=== PATIENT | male | born 1960 | race Caucasian/White ===

== ENCOUNTER 2016-04-24 20:02 | Emergency (ER) | payer BC ==
[~2016-04-24] VITALS: Ht 172.7 cm; Wt 103.4 kg
[~2016-04-24 20:02] MED LIST: AMLO-110 PO; BNT20 PO; EZET10TA47 PO; HYDR-4079 PO; HYZ/50125 PO; MULT-506 PO; OXYC-57 PO; PRT/20 PO; ZOLP5TAB PO
[2016-04-24 20:05] VITALS: TEMP 36.9; Ht 172.7 cm; Wt 103.4 kg
[2016-04-24] MEDS ORDERED: ONDANSETRON INJ 2 MG/ML 2 ML VIAL IV STA (20:37)
[2016-04-24] MEDS ORDERED: PROMETHAZINE HCL INJ 25 MG/ML 1 ML VIAL IV STA (20:37)
[2016-04-24] MEDS ORDERED: SODIUM CHLORIDE 0.9% 1000ML 1,000 ML IV STA ×2 (20:37)
[2016-04-24] MEDS ORDERED: KETOROLAC TROMETHAMINE 30 MG/ML VIAL IV STA (20:37)
[2016-04-24] MEDS ORDERED: HYDROmorphone INJ 2 MG/ML SYR/VIAL IV PRN (20:45)
--- NOTE | 2016-04-24 20:49 | EMERGENCY ROOM VISIT NOTE ---
History Report prepared by Chelsi: Clinton Anguiano Under the Supervision of: Dr. Ralph Wasserman M.D. First contact with patient: 20:35 Chief Complaint: ABDOMINAL PAIN Stated Complaint: PAIN IN ABDOMEN, BACK AND NECK Nursing Triage Summary: hx. pancreatitis. pt with N/V/D. abdominal pain and bloating. unable to keep anything down. water causes extreme pain. denies fever, chills, CP, SOB History of Present Illness The patient is a 55 year old male who presents to the Emergency Room with complaints of worsening right sided abdominal pain beginning two days prior to arrival. He currently rates his discomfort as an 8/10 in severity. The patient associates abdominal pain that radiates to his right flank, nausea, vomiting, and diarrhea with today's symptoms. He states he had a similar episode a few months ago, in which, he was seen in the ED. The patient notes the pain has been intermittent since that time. He states he has a history of pancreatitis. He states had an ultrasound of his pancreas performed that revealed scarring and inflammation. The patient notes he took pain medication today without relief. He denies a history of kidney stones. The patient denies a rash, recent injury, and testicular pain. Source of History: patient Onset: 2 days [employer] Position: abdomen (right sided) Symptom Intensity: 8/10 Timing: worsening Associated Symptoms: + back pain (abdominal pain that radiates to right flank), + diarrhea, + nausea, + vomiting, No rash Review of Systems See HPI for pertinent positives & negatives. A total of 10 systems reviewed and were otherwise negative. Past Medical & Surgical Medical Problems: (1) Chronic pancreatitis (2) Dyslipidemia (3) Hypertension (4) Pancreatitis Surgical Problems: (1) H/O colonoscopy (2) H/O esophagogastroduodenoscopy (3) H/O hernia repair (4) H/O inguinal hernia repair (5) H/O laparoscopy (6) History of appendectomy (7) History of dental surgery (8) Hx of tonsillectomy (9) S/P appendectomy (10) S/P tonsillectomy and adenoidectomy Family History FH: cancer GRANDMOTHER (lung CA) Gallbladder disease Hypertension FATHER Social History Smoking Status: Never Smoker Alcohol Use: none Drug Use: none Marital Status: Housing Status: lives with family Occupation Status: employed Current/Historical Medications Scheduled Amlodipine (Norvasc), 5 MG PO HS Gemfibrozil (Gemfibrozil), 600 MG PO BID Losartan Potassium (Cozaar), 100 MG PO DAILY Ondasetron Odt (Zofran Odt), 4-8 MG SL Q6H Scheduled PRN Dicyclomine Hcl (Dicyclomine Hcl), 20 MG PO BID PRN for Abdominal Pain Oxycodone HCl (Oxycodone HCl), 5-10 MG PO Q4-6HRS PRN for Pain Pantoprazole Sodium (Protonix), 20 MG PO DAILY PRN for Acid Reflux Zolpidem Tartrate (Zolpidem Tartrate), 5 MG PO HS PRN for Sleep Allergies Coded Allergies: Lisinopril (Verified Adverse Reaction, Intermediate, Cough, 04/24/16) Physical Exam Vital Signs Date Time Temp Pulse Resp B/P Pulse Ox O2 Delivery O2 Flow Rate FiO2 04/24/16 23:19 90 20 166/96 96 Room Air 04/24/16 22:41 90 20 162/92 98 Room Air 04/24/16 21:27 83 20 171/104 98 Room Air 04/24/16 20:05 36.9 113 20 199/116 99 Room Air Physical Exam GENERAL: Patient is in no acute distress. HEENT: No acute trauma, normocephalic atraumatic, mucous membranes moist, no nasal congestion, no scleral icterus. NECK: No stridor, no adenopathy, no meningismus, trachea is midline. LUNGS: Clear to auscultation bilaterally, no wheeze, no rhonchi, breath sounds equal. HEART: Mildly tachycardic with a regular rhythm, and a 2/6 systolic murmur. ABDOMEN: Tenderness in the right upper quadrant and epigastrium. Soft, bowel sounds positive, no hernias, no peritonitis. CHEST: Tenderness to the right anterior and lateral lower chest wall. BACK: Tender over the right lumbar musculature and flank with palpation, no rash. EXTREMITIES: No cyanosis or edema, full range of motion of all the joints without pain or difficulty, no signs for acute trauma. NEUROLOGIC: Oriented x 3, no acute motor or sensory deficits, no focal weakness. SKIN: No rash, no jaundice, no diaphoresis. Medical Decision & Procedures ER Provider Diagnostic Interpretation: X-ray results as stated below per interpretation by me and the radiologist: CHEST AND ABDOMEN 2 VIEWS HISTORY: Right-sided abdominal pain. COMPARISON: Abdomen and pelvis CT 02/13/2016. Chest x-ray 05/31/2014. FINDINGS: The lungs are clear. The heart remains borderline enlarged. No pleural effusions. No pneumothorax. Prior cholecystectomy. No pneumoperitoneum. No pneumatosis. No dilated loops of bowel to suggest an obstruction. No renal or ureteral calculi. Round calcifications in the deep pelvis consistent with phleboliths. Small to moderate amount of well-formed stool seen throughout the colon. IMPRESSION: No acute cardiopulmonary process. No evidence for bowel obstruction. Electronically signed by: Kam Baeza M.D. 04/24/2016 10:28 PM Dictated Date/Time: 04/24/2016 10:26 PM Laboratory Results 04/24/16 20:20 Red Blood Count 4.84, Mean Corpuscular Volume 89.5, Mean Corpuscular Hemoglobin 32.2, Mean Corpuscular Hemoglobin Concent 36.0, Mean Platelet Volume 10.3, Neutrophils (%) (Auto) 42.0, Lymphocytes (%) (Auto) 45.1, Monocytes (%) (Auto) 10.0, Eosinophils (%) (Auto) 2.4, Basophils (%) (Auto) 0.4, Neutrophils # (Auto ) 2.79, Lymphocytes # (Auto) 3.01, Monocytes # (Auto) 0.67, Eosinophils # (Auto ) 0.16, Basophils # (Auto) 0.03 04/24/16 20:20 Test 04/24/16 20:20 White Blood Count 6.67 K/uL (4.8-10.8) Red Blood Count 4.84 M/uL (4.7-6.1) Hemoglobin 15.6 g/dL (14.0-18.0) Hematocrit 43.3 % (42-52) Mean Corpuscular Volume 89.5 fL (80-100) Mean Corpuscular Hemoglobin 32.2 pg (25-34) Mean Corpuscular Hemoglobin Concent 36.0 g/dl (32-36) Platelet Count 362 K/uL (130-400) Mean Platelet Volume 10.3 fL (7.4-10.4) Neutrophils (%) (Auto) 42.0 % Lymphocytes (%) (Auto) 45.1 % Monocytes (%) (Auto) 10.0 % Eosinophils (%) (Auto) 2.4 % Basophils (%) (Auto) 0.4 % Neutrophils # (Auto) 2.79 K/uL (1.4-6.5) Lymphocytes # (Auto) 3.01 K/uL (1.2-3.4) Monocytes # (Auto) 0.67 K/uL (0.11-0.59) Eosinophils # (Auto) 0.16 K/uL (0-0.5) Basophils # (Auto) 0.03 K/uL (0-0.2) RDW Standard Deviation 40.7 fL (36.4-46.3) RDW Coefficient of Variation 12.4 % (11.5-14.5) Immature Granulocyte % (Auto) 0.1 % Immature Granulocyte # (Auto) 0.01 K/uL (0.00-0.02) Urine Color YELLOW Urine Appearance CLEAR (CLEAR) Urine pH 7.5 (4.5-7.5) Urine Specific Gilman 1.019 (1.000-1.030) Urine Protein NEG (NEG) Urine Glucose (UA) NEG (NEG) Urine Ketones NEG (NEG) Urine Occult Blood NEG (NEG) Urine Nitrite NEG (NEG) Urine Bilirubin NEG (NEG) Urine Urobilinogen NEG (NEG) Urine Leukocyte Esterase NEG (NEG) Anion Gap 14.0 mmol/L (3-11) Est Creatinine Clear Calc Drug Dose 105.8 ml/min Estimated GFR () 107.5 Estimated GFR (Non- 92.7 BUN/Creatinine Ratio 17.4 (10-20) Calcium Level 9.3 mg/dl (8.5-10.1) Total Bilirubin 0.5 mg/dl (0.2-1) Aspartate Amino Transf (AST/SGOT) 144 U/L (15-37) Alanine Aminotransferase (ALT/SGPT) 238 U/L (12-78) Alkaline Phosphatase 113 U/L (45-117) Total Protein 8.2 gm/dl (6.4-8.2) Albumin 4.4 gm/dl (3.4-5.0) Globulin 3.8 gm/dl (2.5-4.0) Albumin/Globulin Ratio 1.2 (0.9-2) Lipase 351 U/L (73-393) Chemistry Specimen Hemolysis Laboratory results reviewed by me. Medications Administered Medications (Trade) Dose Ordered Sig/Negrito Route Start Time Stop Time Status Last Admin Dose Admin Sodium Chloride (Nss 1000ml) 1,000 ml @ 999 mls/hr Q1H1M STAT IV 04/24/16 20:37 04/24/16 21:37 DC 04/24/16 21:09 999 MLS/HR Ketorolac Tromethamine (Toradol Inj) 30 mg NOW STAT IV 04/24/16 20:37 04/24/16 20:42 DC 04/24/16 21:09 30 MG Hydromorphone HCl (Dilaudid Inj) 1 mg Q30M PRN IV 04/24/16 20:45 04/25/16 00:56 DC 04/24/16 21:09 1 MG Ondansetron HCl 4 mg 4 mg NOW STAT IV 04/24/16 20:37 04/24/16 20:42 DC 04/24/16 21:08 4 MG Promethazine HCl/ Sodium Chloride (Phenergan Inj/ Nss 50ml) 50.5 ml @ 202 mls/hr NOW STAT IV 04/24/16 21:08 04/24/16 21:22 DC 04/24/16 21:27 202 MLS/HR Hydromorphone HCl (Dilaudid Inj) 1 mg STK-MED ONCE .ROUTE 04/24/16 21:47 04/24/16 21:49 DC 04/24/16 21:51 1 MG Hydromorphone HCl (Dilaudid Inj) 1 mg STK-MED ONCE .ROUTE 04/24/16 23:08 04/24/16 23:09 DC 04/24/16 23:11 1 MG Oxycodone HCl (Roxicodone Immediate Rel 5MG Home Pack) 1 homepack UD ONCE PO 04/24/16 23:15 04/24/16 23:16 DC 04/24/16 23:45 1 HOMEPACK Ondansetron HCl (ZOFRAN ODT 4MG Home Pack) 1 homepack UD ONCE PO 04/24/16 23:15 04/24/16 23:16 DC 04/24/16 23:45 1 HOMEPACK ECG Indication: abdominal pain Rate (beats per minute): 73 Rhythm: normal sinus Findings: no acute ischemic change, no ectopy ED Course 2035: The patient was evaluated in room B2. A complete history and physical exam was performed. 2036: Ordered Zofran Inj 4 mg IV, Toradol Inj 30 mg IV, Sodium Chloride 1,000 ml @ 999 mls/hr IV, Phenergan Inj 12.5 mg IV. 2044: Ordered Dilaudid Inj 1 mg IV. 2107: Ordered Promethazine HCl 12.5 mg/Sodium Chloride 50.5 ml @ 202 mls/hr IV. 2256: Reevaluated the patient. Discussed results and discharge instructions: He verbalized understanding and agreement. The patient is ready for discharge. 2314: Ordered Ondansetron HCl 1 homepack PO, Oxycodone HCl 1 homepack PO. Medical Decision The differential diagnoses include but are not limited to: dehydration, acute pancreatitis, biliary colic, musculoskeletal pain, pneumonia, bowel obstruction , UTI, renal colic. There is no leukocytosis or concerning anemia. No significant electrolyte abnormality, kidney failure. The patient does have some mild elevation to a few of his LFTs, bilirubin is not elevated. There is no pancreatitis by our testing. Urinalysis does not show infection. Obstruction series shows no free air, pneumonia or bowel obstruction. The patient was not febrile or toxic. He has had similar presentations in the past. He received IV saline, IV Toradol, IV Zofran, IV Phenergan and IV Dilaudid. He is more comfortable. I do think the patient can be discharged. He has recently received a prescription for oxycodone based on the drug monitoring program. I will not write any new pain medication prescriptions. A prescription for Zofran was given. The patient should slowly advance his diet and follow with his doctor's office, he can return if worsening. He appears to be having a flare of his chronic abdominal issues. [place] Drug Monitoring Program Search Results: patient reviewed within database, see additional documentation Drug Monitoring Findings: The patient was prescribed 180 Percocet on April 09, 2016. Impression Primary Impression: Right flank pain Scribe Attestation The scribe's documentation has been prepared under my direction and personally reviewed by me in its entirety. I confirm that the note above accurately reflects all work, treatment, procedures, and medical decision making performed by me. Departure Information Dispostion Home / Self-Care Prescriptions Ondasetron Odt (ZOFRAN ODT) 4 Mg Tab 4-8 MG SL Q6H for Nausea, #6 TAB Prov: Ralph Wasserman M.D. 04/24/16 Referrals Yas Lopez M.D. (PCP) Forms Call Back Authorization, HOME CARE DOCUMENTATION FORM, IMPORTANT VISIT INFORMATION, My [facility], Work Instructions Patient Instructions A Signature Page Additional Instructions oxy ir 1-2 tab every 4 hours for severe pain zofran 1-2 tab every 6 hours for nausea fluids rest bland diet---crackers, soup, gatorade, toast follow with dina md this week return for fever or if worsening lab testing today was all ok
[2016-04-24 20:51] LABS: URINE APPEARANCE CLEAR (CLEAR); URINE BILIRUBIN NEG (NEG); URINE COLOR YELLOW; URINE NITRITE NEG (NEG); URINE PH 7.5 (4.5-7.5); URINE SPECIFIC GRAVITY 1.019 (1.000-1.030); UROBILINOGEN NEG (NEG); ZZUR CULT IF INDIC CLEAN CATCH NO
[2016-04-24 21:03] LABS: MANUAL MICROSCOPIC REQUIRED? NO; REVIEW REQ? NO
[2016-04-24] MEDS ORDERED: PROMETHAZINE HCL INJ 12.5 MG in SODIUM CHLORIDE 0.9% 50ML 50 ML IV STA (21:08)
[2016-04-24] MEDS ORDERED: PANT20TA PO (21:14)
[2016-04-24] MEDS ORDERED: OXYC-609 PO (21:14)
[2016-04-24] MEDS ORDERED: LPD600 PO (21:14)
[2016-04-24] MEDS ORDERED: ZOLP5TAB6 PO (21:14)
[2016-04-24] MEDS ORDERED: DICY20TA10 PO (21:14)
[2016-04-24] MEDS ORDERED: LOSA100T65 PO (21:14)
[2016-04-24 21:18] LABS: BASO % 0.4 %; BASO ABS # 0.03 K/uL (0-0.2); COMPLETE YES; EOS % 2.4 %; HEMATOCRIT 43.3 % (42-52); IG% 0.1 %; LYMPH % 45.1 %; LYMPH ABS # 3.01 K/uL (1.2-3.4); MEAN CELL VOLUME 89.5 fL (80-100); MEAN CORPUSCULAR HEMOGLOBIN 32.2 pg (25-34); MEAN PLATELET VOLUME 10.3 fL (7.4-10.4); PLATELET COUNT 362 K/uL (130-400); RED BLOOD COUNT 4.84 M/uL (4.7-6.1); WHITE BLOOD COUNT 6.67 K/uL (4.8-10.8)
[2016-04-24 21:32] LABS: ALB/GLOB RATIO 1.2 (0.9-2); BUN/CREATININE RATIO 17.4 (10-20); CALCIUM 9.3 mg/dl (8.5-10.1); CREATININE 0.93 mg/dl (0.60-1.40); POTASSIUM 3.6 mmol/L (3.5-5.1)
[2016-04-24] MEDS ORDERED: HYDROmorphone INJ 1 MG/ML SYR ONE ×2 (21:47→23:08)
--- NOTE | 2016-04-24 22:30 | DIAGNOSTIC IMAGING REPORT ---
CHEST AND ABDOMEN 2 VIEWS HISTORY: Right-sided abdominal pain. COMPARISON: Abdomen and pelvis CT 02/13/2016. Chest x-ray 05/31/2014. FINDINGS: The lungs are clear. The heart remains borderline enlarged. No pleural effusions. No pneumothorax. Prior cholecystectomy. No pneumoperitoneum. No pneumatosis. No dilated loops of bowel to suggest an obstruction. No renal or ureteral calculi. Round calcifications in the deep pelvis consistent with phleboliths. Small to moderate amount of well-formed stool seen throughout the colon. IMPRESSION: No acute cardiopulmonary process. No evidence for bowel obstruction. Electronically signed by: Kam Baeza M.D. 04/24/2016 10:28 PM Dictated Date/Time: 04/24/2016 10:26 PM
[2016-04-24] MEDS ORDERED: ONDANSETRON HOME PACK 4MG OD TAB PO ONE (23:15)
[2016-04-24] MEDS ORDERED: OXYCODONE IR HOME PACK PO ONE (23:15)
[2016-04-24] MEDS ORDERED: ONDA4TAB10 SL (23:17)
[2016-04-24 23:19] VITALS: BP 166/96; PULSE 90; O2SAT 96
== END 2016-04-24 23:48 | disposition home or self-care (01) ==
LOC: C.EDB 20:03
DX: R10.30 Lower abdominal pain, unspecified (principal); E78.5 Hyperlipidemia, unspecified; I10 Essential (primary) hypertension; Z82.49 Family history of ischemic heart disease and other diseases of the circulatory system; Z79.899 Other long term (current) drug therapy

== ENCOUNTER 2017-08-04 12:51 | Inpatient (IN) | payer BC ==
[~2017-08-04] VITALS: Ht 177.8 cm; Wt 101.1 kg
[~2017-08-04 12:51] MED LIST changes: -BNT20 PO; +CRG625 PO; +DICY20TA10 PO; -EZET10TA47 PO; -HYDR-4079 PO; +HYG/25 PO; -HYZ/50125 PO; +LOSA100T65 PO; +LPD600 PO; -MULT-506 PO; +OXYC-164 PO; -OXYC-57 PO; +PANCCAP2 PO; +PANT20TA2 PO; -PRT/20 PO; -ZOLP5TAB PO
[2017-08-04] MEDS ORDERED: ONDANSETRON INJ 2 MG/ML 2 ML VIAL IV STA (13:04)
[2017-08-04] MEDS ORDERED: SODIUM CHLORIDE 0.9% 1000ML 1,000 ML IV STA (13:04)
[2017-08-04] MEDS ORDERED: OPTIRAY 320 IV PRN (13:15)
[2017-08-04] MEDS: MoRPHine SULFATE 10 MG/ML CARP/VIAL IV PRN ×2 (13:29→14:13)
[2017-08-04 13:51] LABS: ALBUMIN 4.7 gm/dl (3.4-5.0); CREATININE 1.22 mg/dl (0.60-1.40)
[2017-08-04 13:56] LABS: TOTAL PROTEIN 9.3 gm/dl (6.4-8.2)
--- NOTE | 2017-08-04 14:03 | DIAGNOSTIC IMAGING REPORT ---
CHEST ONE VIEW PORTABLE CLINICAL HISTORY: Pain, radiating to the abdomen. COMPARISON STUDY: 04/24/2016 FINDINGS: The cardiac and mediastinal contours are normal. There is no evidence of focal pulmonary consolidation. There is no evidence of failure. No pleural effusions are visualized.[ There is no free intraperitoneal air. IMPRESSION: No active disease in the chest. Electronically signed by: Roberto Yeh M.D. 08/04/2017 2:02 PM Dictated Date/Time: 08/04/2017 2:01 PM
[2017-08-04] MEDS ORDERED: LABETALOL HCL IV 5 MG/ML 20ML IV STA (14:07)
[2017-08-04 14:12] LABS: BASO % 0.5 %; BASO ABS # 0.04 K/uL (0-0.2); EOS % 2.3 %; HEMATOCRIT 42.5 % (42-52); HEMOGLOBIN 15.5 g/dL (14.0-18.0); IG# 0.02 K/uL (0.00-0.02); LYMPH % 27.8 %; LYMPH ABS # 2.46 K/uL (1.2-3.4); MEAN CELL VOLUME 88.7 fL (80-100); MEAN CORPUSCULAR HEMOGLOBIN 32.4 pg (25-34); MEAN CORPUSCULAR HGB CONC 36.5 g/dl (32-36); MEAN PLATELET VOLUME 9.6 fL (7.4-10.4); MONO % 7.8 %; MONO ABS # 0.69 K/uL (0.11-0.59); NEUT % 61.4 %; NEUT ABS # 5.44 K/uL (1.4-6.5); PLATELET COUNT 317 K/uL (130-400); RED CELL DISTRIBUTION WIDTH SD 38.6 fL (36.4-46.3); WHITE BLOOD COUNT 8.85 K/uL (4.8-10.8)
[2017-08-04 14:26] LABS: POTASSIUM 3.8 mmol/L (3.5-5.1)
--- NOTE | 2017-08-04 15:02 | DIAGNOSTIC IMAGING REPORT ---
CT SCAN OF THE ABDOMEN AND PELVIS WITH IV CONTRAST CLINICAL HISTORY: Generalized abdominal pain. COMPARISON STUDY: Abdominal CT dated 02/19/2017 04/02/2013. TECHNIQUE: Following the IV administration of 93 cc of Optiray 320, CT scan of the abdomen and pelvis is performed from the lung bases to the proximal femora. Images are reviewed in the axial, sagittal, and coronal planes. IV contrast was administered without complication. A dose lowering technique was utilized adhering to the principles of ALARA. CT DOSE: 846.01 mGy.cm FINDINGS: Lung bases: The heart is top normal in size and without pericardial effusion. A 4 mm pleural-based nodule at the left lung base is seen on image #8. This is unchanged dating back to 2012 and of doubtful significance. The lung bases are otherwise clear noting bibasilar atelectasis. There is a tiny hiatal hernia. Liver: The contrast-enhanced liver is enlarged, measuring 19.1 cm in length. The liver demonstrates diminished attenuation consistent with mild hepatic steatosis. There is mild intrahepatic biliary ductal dilatation. The hepatic veins and portal veins are patent. Gallbladder: Surgically absent noting clips in the gallbladder fossa. Spleen: Normal in size and attenuation. Pancreas: Unremarkable. Adrenal glands: Unremarkable. Kidneys: The contrast enhanced kidneys are normal in size and without hydronephrosis. The kidneys enhance symmetrically. Abdominal vasculature: The abdominal aorta is normal in course and caliber noting mild atherosclerotic calcification. Bowel: There is mild colonic diverticulosis without CT evidence of acute diverticulitis. No bowel obstruction is identified. The appendix is not identified and reported surgically absent. Peritoneum: There is no intraperitoneal free air or abdominal ascites. There is a small fat-containing umbilical hernia. Lymphadenopathy: None. Pelvic viscera: The bladder, prostate, and seminal vesicles are normal as visualized. Skeletal structures: No lytic or blastic lesions are seen. IMPRESSION: 1. There are no acute infectious or inflammatory findings in the abdomen or pelvis. 2. Hepatomegaly and hepatic steatosis. 3. Mild colonic diverticulosis without CT evidence of acute diverticulitis. Electronically signed by: Ralph Lang M.D. 08/04/2017 3:00 PM Dictated Date/Time: 08/04/2017 2:53 PM
[2017-08-04] MEDS ORDERED: HYDROmorphone INJ 2 MG/ML SYR/VIAL IV STA (15:20)
[2017-08-04] MEDS ORDERED: HYDROmorphone INJ 1 MG/ML SYR ONE (15:26)
--- NOTE | 2017-08-04 15:40 | EMERGENCY ROOM VISIT NOTE ---
History Report prepared by Chelsi: Malachi Huerta Under the Supervision of: Dr. Ralph Wasserman M.D. First contact with patient: 12:58 Chief Complaint: ABDOMINAL PAIN Stated Complaint: ABDOMINAL PAIN History of Present Illness The patient is a 56 year old male who presents to the Emergency Room with complaints of intermittent upper central abdominal pain beginning five days ago. He has a previous history of pancreatitis and states that his current symptoms feel similar. The patient also complains of nausea. He rates his pain as a 9/10 in severity. His pain is worsened with eating fatty foods. The patient denies vomiting or fevers. He denies heavy alcohol consumption. He had an abdominal scan a few weeks ago for similar symptoms which was negative. The patient had a negative stress test recently. Source of History: patient Onset: Five days ago Position: abdomen (upper central) Symptom Intensity: 9/10 Timing: intermittent Modifying Factors (Worsening): eating (fatty foods) Associated Symptoms: + nausea, No fevers, No vomiting Review of Systems See HPI for pertinent positives & negatives. A total of 10 systems reviewed and were otherwise negative. Past Medical & Surgical Medical Problems: (1) Chronic pancreatitis (2) Dyslipidemia (3) Hypertension (4) Hypertensive urgency (5) Pancreatitis Surgical Problems: (1) H/O colonoscopy (2) H/O esophagogastroduodenoscopy (3) H/O hernia repair (4) H/O inguinal hernia repair (5) H/O laparoscopy (6) History of appendectomy (7) History of dental surgery (8) Hx of tonsillectomy (9) S/P appendectomy (10) S/P tonsillectomy and adenoidectomy Family History FH: cancer GRANDMOTHER (lung CA) Gallbladder disease Hypertension FATHER Social History Smoking Status: Never Smoker Alcohol Use: none Drug Use: none Marital Status: Housing Status: lives with family Occupation Status: employed Current/Historical Medications Scheduled Amlodipine (Norvasc), 5 MG PO HS Carvedilol (Carvedilol), 6.25 MG PO BID Chlorthalidone (Hygroton), 25 MG PO DAILY Gemfibrozil (Gemfibrozil), 600 MG PO BID Losartan Potassium (Cozaar), 100 MG PO DAILY Scheduled PRN Pantoprazole Sodium (Protonix), 20 MG PO DAILY PRN for Acid Reflux Allergies Coded Allergies: Lisinopril (Verified Adverse Reaction, Intermediate, Cough, 04/24/16) Physical Exam Vital Signs Date Time Temp Pulse Resp B/P (MAP) Pulse Ox O2 Delivery O2 Flow Rate FiO2 08/04/17 16:34 90 16 153/96 92 08/04/17 16:31 153/96 08/04/17 16:10 90 16 08/04/17 16:05 89 18 92 Room Air 08/04/17 16:02 176/93 08/04/17 15:35 84 19 97 Room Air 08/04/17 15:34 84 16 151/103 96 Room Air 08/04/17 15:01 89 19 165/105 97 Room Air 08/04/17 14:31 185/110 08/04/17 14:28 195/118 08/04/17 14:27 83 19 96 Room Air 08/04/17 14:22 83 24 95 Room Air 08/04/17 14:17 81 18 96 Room Air 08/04/17 14:12 86 15 98 Room Air 08/04/17 14:07 87 17 96 Room Air 08/04/17 14:02 223/120 08/04/17 13:51 93 18 91 Room Air 08/04/17 13:38 87 08/04/17 13:32 89 18 175/119 98 Room Air 08/04/17 13:32 175/119 08/04/17 12:54 36.4 123 20 192/117 99 Room Air Physical Exam GENERAL: Patient is in no acute distress. Appears anxious. HEENT: No acute trauma, normocephalic atraumatic, mucous membranes moist, no nasal congestion, no scleral icterus. NECK: No stridor, no adenopathy, no meningismus, trachea is midline. LUNGS: Clear to auscultation bilaterally, no wheeze, no rhonchi, breath sounds equal. HEART: Tachycardic with a regular rhythm. No murmurs. ABDOMEN: Soft, bowel sounds positive, no hernias, no peritonitis. Markedly tender in the epigastrium. EXTREMITIES: No cyanosis or edema, full range of motion of all the joints without pain or difficulty, no signs for acute trauma. NEUROLOGIC: Oriented x 3, no acute motor or sensory deficits, no focal weakness. SKIN: No rash, no jaundice, no diaphoresis. Medical Decision & Procedures ER Provider Diagnostic Interpretation: Radiology results as stated below per my review and radiologist interpretation: CHEST ONE VIEW PORTABLE FINDINGS: The cardiac and mediastinal contours are normal. There is no evidence of focal pulmonary consolidation. There is no evidence of failure. No pleural effusions are visualized.[ There is no free intraperitoneal air. IMPRESSION: No active disease in the chest. Electronically signed by: Roberto Yeh M.D. 08/04/2017 2:[address] SCAN OF THE ABDOMEN AND PELVIS WITH IV CONTRAST FINDINGS: Lung bases: The heart is top normal in size and without pericardial effusion. A 4 mm pleural-based nodule at the left lung base is seen on image #8. This is unchanged dating back to 2013 and of doubtful significance. The lung bases are otherwise clear noting bibasilar atelectasis. There is a tiny hiatal hernia. Liver: The contrast-enhanced liver is enlarged, measuring 19.1 cm in length. The liver demonstrates diminished attenuation consistent with mild hepatic steatosis. There is mild intrahepatic biliary ductal dilatation. The hepatic veins and portal veins are patent. Gallbladder: Surgically absent noting clips in the gallbladder fossa. Spleen: Normal in size and attenuation. Pancreas: Unremarkable. Adrenal glands: Unremarkable. Kidneys: The contrast enhanced kidneys are normal in size and without hydronephrosis. The kidneys enhance symmetrically. Abdominal vasculature: The abdominal aorta is normal in course and caliber noting mild atherosclerotic calcification. Bowel: There is mild colonic diverticulosis without CT evidence of acute diverticulitis. No bowel obstruction is identified. The appendix is not identified and reported surgically absent. Peritoneum: There is no intraperitoneal free air or abdominal ascites. There is a small fat-containing umbilical hernia. Lymphadenopathy: None. Pelvic viscera: The bladder, prostate, and seminal vesicles are normal as visualized. Skeletal structures: No lytic or blastic lesions are seen. IMPRESSION: 1. There are no acute infectious or inflammatory findings in the abdomen or pelvis. 2. Hepatomegaly and hepatic steatosis. 3. Mild colonic diverticulosis without CT evidence of acute diverticulitis. Electronically signed by: Ralph Lang M.D. 08/04/2017 3:00 PM Laboratory Results 08/04/17 13:58 Red Blood Count 4.79, Mean Corpuscular Volume 88.7, Mean Corpuscular Hemoglobin 32.4, Mean Corpuscular Hemoglobin Concent 36.5, Mean Platelet Volume 9.6, Neutrophils (%) (Auto) 61.4, Lymphocytes (%) (Auto) 27.8, Monocytes (%) (Auto) 7.8, Eosinophils (%) (Auto) 2.3, Basophils (%) (Auto) 0.5, Neutrophils # (Auto) 5.44, Lymphocytes # (Auto) 2.46, Monocytes # (Auto) 0.69, Eosinophils # (Auto) 0.20, Basophils # (Auto) 0.04 08/04/17 13:20 08/04/17 14:00 Test 08/04/17 13:20 08/04/17 13:58 08/04/17 14:00 Anion Gap 8.0 mmol/L (3-11) Est Creatinine Clear Calc Drug Dose 79.1 ml/min Estimated GFR () 76.9 Estimated GFR (Non- 66.3 BUN/Creatinine Ratio 14.3 (10-20) Calcium Level 10.0 mg/dl (8.5-10.1) Total Bilirubin 0.8 mg/dl (0.2-1) Alanine Aminotransferase (ALT/SGPT) 38 U/L (12-78) Alkaline Phosphatase 74 U/L (45-117) Troponin I 0.044 ng/ml (0-0.045) Total Protein 9.3 gm/dl (6.4-8.2) Albumin 4.7 gm/dl (3.4-5.0) Globulin 4.6 gm/dl (2.5-4.0) Albumin/Globulin Ratio 1.0 (0.9-2) Lipase 116 U/L (73-393) White Blood Count 8.85 K/uL (4.8-10.8) Red Blood Count 4.79 M/uL (4.7-6.1) Hemoglobin 15.5 g/dL (14.0-18.0) Hematocrit 42.5 % (42-52) Mean Corpuscular Volume 88.7 fL (80-100) Mean Corpuscular Hemoglobin 32.4 pg (25-34) Mean Corpuscular Hemoglobin Concent 36.5 g/dl (32-36) Platelet Count 317 K/uL (130-400) Mean Platelet Volume 9.6 fL (7.4-10.4) Neutrophils (%) (Auto) 61.4 % Lymphocytes (%) (Auto) 27.8 % Monocytes (%) (Auto) 7.8 % Eosinophils (%) (Auto) 2.3 % Basophils (%) (Auto) 0.5 % Neutrophils # (Auto) 5.44 K/uL (1.4-6.5) Lymphocytes # (Auto) 2.46 K/uL (1.2-3.4) Monocytes # (Auto) 0.69 K/uL (0.11-0.59) Eosinophils # (Auto) 0.20 K/uL (0-0.5) Basophils # (Auto) 0.04 K/uL (0-0.2) RDW Standard Deviation 38.6 fL (36.4-46.3) RDW Coefficient of Variation 12.0 % (11.5-14.5) Immature Granulocyte % (Auto) 0.2 % Immature Granulocyte # (Auto) 0.02 K/uL (0.00-0.02) Prothrombin Time 11.0 SECONDS (9.0-12.0) Prothromb Time International Ratio 1.0 (0.9-1.1) Activated Partial Thromboplast Time 28.0 SECONDS (21.0-31.0) Partial Thromboplastin Ratio 1.1 Aspartate Amino Transf (AST/SGOT) 27 U/L (15-37) Laboratory results reviewed by me. Medications Administered Medications (Trade) Dose Ordered Sig/Negrito Route Start Time Stop Time Status Last Admin Dose Admin Ondansetron HCl (Zofran Inj) 4 mg NOW STAT IV 08/04/17 13:04 08/04/17 13:07 DC 08/04/17 13:29 4 MG Sodium Chloride 1,000 ml @ 999 mls/hr Q1H1M STAT IV 08/04/17 13:04 08/04/17 14:04 DC 08/04/17 13:31 999 MLS/HR Morphine Sulfate (MoRPHine SULFATE INJ) 6 mg Q30M PRN IV 08/04/17 13:15 08/18/17 13:14 08/04/17 14:13 6 MG Labetalol HCl (Normodyne IV) 20 mg NOW STAT IV 08/04/17 14:07 08/04/17 14:08 DC 08/04/17 14:23 20 MG Hydromorphone HCl (Dilaudid Inj) 1 mg STK-MED ONCE .ROUTE 08/04/17 15:26 08/04/17 15:27 DC 08/04/17 15:30 1 MG ECG Per My Interpretation Indication: abdominal pain Rate (beats per minute): 108 Rhythm: sinus tachycardia Findings: no ectopy, other (No ST elevations. No PVCs. ) ED Course 1301: The patient was evaluated in room C8. A complete history and physical exam was performed. 1304: Ordered Sodium Chloride 1000 ml @ 999 mls/hr IV, Zofran Inj 4 mg IV. 1315: Ordered Morphine Sulfate 6 mg IV. 1407: Ordered Normodyne 20 mg IV. 1515: Upon reexamination the patient is resting comfortably. He is feeling better. I discussed results and treatment plan with the patient. He verbalizes agreement and understanding. I spoke with Pippa Herbert PA-C of the [facility]. We discussed the patient's results and findings. The patient will be evaluated by [facility] for further management. 1520: Ordered Dilaudid Inj 1 mg IV. Medical Decision The patient is a 56 year old male who presents to the ED with complaints of abdominal pain. Differential diagnoses considered include pancreatitis, ulcer, gastritis, cardiac ischemia, [place], anemia, electrolyte imbalance, and bowel obstruction/perforation. There is no leukocytosis or concerning anemia. No significant electrolyte abnormality, kidney failure, hepatitis or pancreatic enzyme elevation. EKG shows a sinus tachycardia, no acute ischemia. Cardiac enzyme testing 1 is not consistent with acute cardiac injury. Chest x-ray shows no mediastinal widening , pneumonia or free air. Abdominal and pelvis CT does not show evidence for bowel perforation or obstruction, no pancreatitis by CT. Patient received IV saline, IV morphine and IV Zofran. He was given IV Dilaudid and also IV labetalol. He is feeling somewhat better and his blood pressure is now more reasonable. The patient has a history of pancreatitis and likely is having a flare of his chronic pancreatitis. I do not think he is stable for discharge home--he has required multiple doses of pain medication. I did speak with the patient and case management. Hospitalization is required. Medication Reconcilliation Current Medication List: was personally reviewed by me Blood Pressure Screening Patient's blood pressure: Elevated blood pressure Blood pressure disposition: Referred to PCP Consults Time Called: 151 Consulting Physician: Pippa Herbert PA-C - [facility] Returned Call: [phone] Discussed the patient's case. The patient will be evaluated for further management. Impression Primary Impression: Epigastric abdominal pain Additional Impressions: Chronic pancreatitis Hypertension Scribe Attestation The scribe's documentation has been prepared under my direction and personally reviewed by me in its entirety. I confirm that the note above accurately reflects all work, treatment, procedures, and medical decision making performed by me. Departure Information Dispostion Being Evaluated By Hospitalist Referrals Manish Cummings M.D.([facility]) (PCP) Patient Instructions My [facility] Problem Qualifiers
[2017-08-04] MEDS ORDERED: SODIUM CHLORIDE 0.9% 1000ML 1,000 ML IV SCH (16:17)
[2017-08-04] MEDS ORDERED: POLYETHYLENE (MIRALAX) 17 GM PACK PO PRN (16:30)
[2017-08-04] MEDS ORDERED: NALOXONE HCL 0.4 MG/1 ML VIAL/CARP IV PRN (16:30)
[2017-08-04] MEDS ORDERED: HYDROmorphone HCL 0.5MG/ML 50 ML CASSETTE IV PRN (16:30)
--- NOTE | 2017-08-04 17:09 | History and Physical ---
History & Physical Date & Time of Service: Aug 04, 2017 at 16:57 Chief Complaint: Abdominal Pain Primary Care Physician: Manish Cummings M.D.(ALONDRA) History of Present Illness Source: patient, clinic records, hospital records This is a 56yo M with a PMH of chronic recurrent pancreatitis, HTN and hypertriglyceridemia who presents with worsening central abdominal pain 6 days. Patient has experienced many episodes of pancreatitis starting in 2006. Was most recently admitted for a flare of pancreatitis in February 2017. Underwent a cholecystectomy in 2014 but flares have continued to recur. [place] [facility] [place]. Pancreatitis thought to be 2/2 hypertriglyceridemia and pancreatic divisum. The following imaging was performed in 2016: abd CT showed stranding around the pancreatic head, MRCP with presence of a side-branch IPMN and EUS showed changes consistent with chronic pancreatitis with multiple cysts. Patient states that he can usually control flare ups at home by switching to a liquid diet and managing pain. However, this time his abdominal pain persisted and worsened over the weekend. Describes central abd pain as constant and stabbing with radiation to his back. Was a 10/10 but is now a 7/10 after receiving 6mg morphine x 2 and 1mg dilaudid. Endorses nausea but no vomiting, fever, chills or diarrhea. Denies lightheadedness, headache, visual changes, chest pain, SOB, vomiting or dysuria. Past Medical/Surgical History Medical Problems: (1) Chronic recurrent pancreatitis Status: Chronic (2) Dyslipidemia Status: Chronic (3) Hypertension Status: Chronic (4) Hypertriglyceridemia Status: Chronic (5) Pancreatitis Status: Chronic Surgical Problems: (1) H/O colonoscopy Status: Chronic (2) H/O esophagogastroduodenoscopy Status: Chronic (3) H/O hernia repair Status: Resolved (4) H/O inguinal hernia repair Status: Chronic (5) H/O laparoscopy Status: Chronic (6) History of appendectomy Status: Resolved (7) History of dental surgery Status: Chronic (8) Hx of tonsillectomy Status: Resolved (9) S/P appendectomy Status: Chronic (10) S/P tonsillectomy and adenoidectomy Status: Chronic Social History Problems: (1) Chronic pancreatitis Status: Chronic Family History FH: cancer GRANDMOTHER (lung CA) Gallbladder disease Hypertension FATHER Social History Smoking Status: Never Smoker Alcohol Use: none Drug Use: none Marital Status: Housing status: lives with significant other Occupational Status: employed Immunizations History of Influenza Vaccine: No History of Tetanus Vaccine?: Yes Tetanus Immunization Date: Nov 25, 2004 History of Pneumococcal: No History of Hepatitis B Vaccine: No Allergies Coded Allergies: Lisinopril (Verified Adverse Reaction, Intermediate, Cough, 04/24/16) Home Medications Scheduled Carvedilol (Carvedilol), 25 MG PO BID Ezetimibe (Zetia), 1 TAB PO DAILY Gemfibrozil (Gemfibrozil), 600 MG PO BID Losartan Potassium (Cozaar), 100 MG PO DAILY Pancrelipase (Lipase-Protease- (Pancreaze), 1 CAP PO TIDM Scheduled PRN Calcium Carbonate (Tums), 1 TAB PO QID PRN for heartburn/upset stomach Oxycodone HCl (Oxycodone HCl), 5 MG PO Q6H PRN for Pain Review of Systems Ten systems reviewed and negative except as noted in the HPI. Physical Exam Vital Signs Date Time Temp Pulse Resp B/P (MAP) Pulse Ox O2 Delivery O2 Flow Rate FiO2 08/04/17 16:34 90 16 153/96 92 08/04/17 16:31 153/96 08/04/17 16:10 90 16 08/04/17 16:05 89 18 92 Room Air 08/04/17 16:02 176/93 08/04/17 15:35 84 19 97 Room Air 08/04/17 15:34 84 16 151/103 96 Room Air 08/04/17 15:01 89 19 165/105 97 Room Air 08/04/17 14:31 185/110 08/04/17 14:28 195/118 08/04/17 14:27 83 19 96 Room Air 08/04/17 14:22 83 24 95 Room Air 08/04/17 14:17 81 18 96 Room Air 08/04/17 14:12 86 15 98 Room Air 08/04/17 14:07 87 17 96 Room Air 08/04/17 14:02 223/120 08/04/17 13:51 93 18 91 Room Air 08/04/17 13:38 87 08/04/17 13:32 89 18 175/119 98 Room Air 08/04/17 13:32 175/119 08/04/17 12:54 36.4 123 20 192/117 99 Room Air General Appearance: + moderate distress, + pertinent finding (Grimacing from pain ) Head: normocephalic, atraumatic Eyes: normal inspection (pinpoint pupils), sclerae normal ENT: normal ENT inspection, hearing grossly normal, pharynx normal (dry mucous membranes ) Neck: supple, trachea midline Respiratory/Chest: chest non-tender, lungs clear, normal breath sounds, no respiratory distress, no accessory muscle use Cardiovascular: regular rate, rhythm, no murmur, normal peripheral pulses Abdomen/GI: + tenderness (Diffuse TTP (most tender in midepigastrim, central abd)), + guarding Back: normal inspection Extremities/Musculoskelatal: normal inspection, no calf tenderness, no pedal edema Neurologic/Psych: no motor/sensory deficits, alert, normal mood/affect, oriented x 3 Skin: normal color, warm/dry Diagnostics Laboratory Results 08/04/17 13:58 Red Blood Count 4.79, Mean Corpuscular Volume 88.7, Mean Corpuscular Hemoglobin 32.4, Mean Corpuscular Hemoglobin Concent 36.5, Mean Platelet Volume 9.6, Neutrophils (%) (Auto) 61.4, Lymphocytes (%) (Auto) 27.8, Monocytes (%) (Auto) 7.8, Eosinophils (%) (Auto) 2.3, Basophils (%) (Auto) 0.5, Neutrophils # (Auto) 5.44, Lymphocytes # (Auto) 2.46, Monocytes # (Auto) 0.69, Eosinophils # (Auto) 0.20, Basophils # (Auto) 0.04 08/04/17 13:20 08/04/17 14:00 Test 08/04/17 13:20 08/04/17 13:58 08/04/17 14:00 Anion Gap 8.0 mmol/L (3-11) Est Creatinine Clear Calc Drug Dose 79.1 ml/min Estimated GFR () 76.9 Estimated GFR (Non- 66.3 BUN/Creatinine Ratio 14.3 (10-20) Calcium Level 10.0 mg/dl (8.5-10.1) Total Bilirubin 0.8 mg/dl (0.2-1) Alanine Aminotransferase (ALT/SGPT) 38 U/L (12-78) Alkaline Phosphatase 74 U/L (45-117) Troponin I 0.044 ng/ml (0-0.045) Total Protein 9.3 gm/dl (6.4-8.2) Albumin 4.7 gm/dl (3.4-5.0) Globulin 4.6 gm/dl (2.5-4.0) Albumin/Globulin Ratio 1.0 (0.9-2) Lipase 116 U/L (73-393) White Blood Count 8.85 K/uL (4.8-10.8) Red Blood Count 4.79 M/uL (4.7-6.1) Hemoglobin 15.5 g/dL (14.0-18.0) Hematocrit 42.5 % (42-52) Mean Corpuscular Volume 88.7 fL (80-100) Mean Corpuscular Hemoglobin 32.4 pg (25-34) Mean Corpuscular Hemoglobin Concent 36.5 g/dl (32-36) Platelet Count 317 K/uL (130-400) Mean Platelet Volume 9.6 fL (7.4-10.4) Neutrophils (%) (Auto) 61.4 % Lymphocytes (%) (Auto) 27.8 % Monocytes (%) (Auto) 7.8 % Eosinophils (%) (Auto) 2.3 % Basophils (%) (Auto) 0.5 % Neutrophils # (Auto) 5.44 K/uL (1.4-6.5) Lymphocytes # (Auto) 2.46 K/uL (1.2-3.4) Monocytes # (Auto) 0.69 K/uL (0.11-0.59) Eosinophils # (Auto) 0.20 K/uL (0-0.5) Basophils # (Auto) 0.04 K/uL (0-0.2) RDW Standard Deviation 38.6 fL (36.4-46.3) RDW Coefficient of Variation 12.0 % (11.5-14.5) Immature Granulocyte % (Auto) 0.2 % Immature Granulocyte # (Auto) 0.02 K/uL (0.00-0.02) Prothrombin Time 11.0 SECONDS (9.0-12.0) Prothromb Time International Ratio 1.0 (0.9-1.1) Activated Partial Thromboplast Time 28.0 SECONDS (21.0-31.0) Partial Thromboplastin Ratio 1.1 Aspartate Amino Transf (AST/SGOT) 27 U/L (15-37) Results Past 24 Hours Test 08/04/17 13:20 08/04/17 13:58 08/04/17 14:00 Range/Units Sodium Level 134 136-145 mmol/L Potassium Level 3.8 3.5-5.1 mmol/L Chloride Level 103 98-107 mmol/L Carbon Dioxide Level 23 21-32 mmol/L Anion Gap 8.0 3-11 mmol/L Blood Urea Nitrogen 18 7-18 mg/dl Creatinine 1.22 0.60-1.40 mg/dl Est Creatinine Clear Calc Drug Dose 79.1 ml/min Estimated GFR () 76.9 Estimated GFR (Non- 66.3 BUN/Creatinine Ratio 14.3 10-20 Random Glucose 90 70-99 mg/dl Calcium Level 10.0 8.5-10.1 mg/dl Total Bilirubin 0.8 0.2-1 mg/dl Aspartate Amino Transf (AST/SGOT) 27 15-37 U/L Alanine Aminotransferase (ALT/SGPT) 38 12-78 U/L Alkaline Phosphatase 74 45-117 U/L Troponin I 0.044 0-0.045 ng/ml Total Protein 9.3 6.4-8.2 gm/dl Albumin 4.7 3.4-5.0 gm/dl Globulin 4.6 2.5-4.0 gm/dl Albumin/Globulin Ratio 1.0 0.9-2 Lipase 116 73-393 U/L White Blood Count 8.85 4.8-10.8 K/uL Red Blood Count 4.79 4.7-6.1 M/uL Hemoglobin 15.5 14.0-18.0 g/dL Hematocrit 42.5 42-52 % Mean Corpuscular Volume 88.7 80-100 fL Mean Corpuscular Hemoglobin 32.4 25-34 pg Mean Corpuscular Hemoglobin Concent 36.5 32-36 g/dl Platelet Count 317 130-400 K/uL Mean Platelet Volume 9.6 7.4-10.4 fL Neutrophils (%) (Auto) 61.4 % Lymphocytes (%) (Auto) 27.8 % Monocytes (%) (Auto) 7.8 % Eosinophils (%) (Auto) 2.3 % Basophils (%) (Auto) 0.5 % Neutrophils # (Auto) 5.44 1.4-6.5 K/uL Lymphocytes # (Auto) 2.46 1.2-3.4 K/uL Monocytes # (Auto) 0.69 0.11-0.59 K/uL Eosinophils # (Auto) 0.20 0-0.5 K/uL Basophils # (Auto) 0.04 0-0.2 K/uL RDW Standard Deviation 38.6 36.4-46.3 fL RDW Coefficient of Variation 12.0 11.5-14.5 % Immature Granulocyte % (Auto) 0.2 % Immature Granulocyte # (Auto) 0.02 0.00-0.02 K/uL Prothrombin Time 11.0 9.0-12.0 SECONDS Prothromb Time International Ratio 1.0 0.9-1.1 Activated Partial Thromboplast Time 28.0 21.0-31.0 SECONDS Partial Thromboplastin Ratio 1.1 Diagnostic Radiology CXR: IMPRESSION: No active disease in the chest. CT abd/pelvis: IMPRESSION: 1. There are no acute infectious or inflammatory findings in the abdomen or pelvis. 2. Hepatomegaly and hepatic steatosis. 3. Mild colonic diverticulosis without CT evidence of acute diverticulitis. EKG Sinus tachycardia. Possible Left atrial enlargement. Incomplete right bundle branch block. When compared with ECG of 24-APR-2016 21:18, no significant change was found. No change from prior EKG Impression Assessment and Plan This is a 56yo M with a PMH of chronic recurrent pancreatitis, HTN and hypertriglyceridemia who presents with worsening central abdominal pain 6 days. Acute on chronic recurrent pancreatitis: -Severe central abd pain x 6 days -Lipase wnl -CT abd pelvis without acute infectious or inflammatory findings in the abd or pelvis -Morphine 6mg x 2, dilaudid 1mg given in ED -IVF resuscitation with LR -NPO except ice chips and sips -GI consulted -Will continue pain management with dilaudid ASSISTANCE COORDINATOR pump for 24h -Reevaluate pain control tomorrow and transition to IV/PO Hypertensive urgency: resolving -BP elevated up to 223/110--> improved to 153/96 -2/2 pain, non-compliance with home BP meds -Also a withdrawal component -Per PDMP review, patient used to receiving 10mg oxycodone Q6H PRN -Recently had narcotic agreement terminated by PCP -IV labetolol given in ED -Should improve with ASSISTANCE COORDINATOR pain pump -Cont home dose coreg -Monitor on telemetry Hypertriglyceridemia: -Historically elevated -Cont gemfibrozil -Fasting lipid panel in AM DVT Ppx: SQ Lovenox Code status: FULL PCP: Zoila Dispo: Admitted to telemetry. Plan to return home once medically stable. Patient seen in collaboration with Dr. Zhang. Please see addendum. Addendum: I have seen and examined the patient and agree with the assessment and plan as stated above with the following exceptions. The patient is clearly in acute distress secondary to pain. The abdominal exam reveals epigastric tenderness to palpation with voluntary guarding. There is no distention and bowel sounds are present. He reports last meal to be this morning where he had some toast and a small sandwich for breakfast. He denies vomiting this up however the pain has become so intense over the last 5 days, the pain is what brought him in today. We discussed his situation with narcotics and recent opiate needs. He states that he does not need to take oxycodone 4 times a day consistently but that he does rely on it when he has an acute flare. He has currently been [facility] in [place] [facility] to reestablish care. As above, pancreatitis is chronic and has been extensively worked up likely related to elevated triglycerides in addition to pancreatic divisum. Will consult gastroenterology as they are familiar with this patient. Agree with supportive care as above including IV fluids, Dilaudid ASSISTANCE COORDINATOR and other supportive care as needed. Will continue to monitor blood pressure every 4 hours while simultaneously controlling pain. The patient states that he has seen both cardiology and nephrology for hypertension management and he was advised to select one specialist to go with after discharge. Vicente, DO Resuscitation Status VTE Prophylaxis Will order VTE Prophylaxis: Yes
[2017-08-04 17:20] VITALS: BP 186/110; PULSE 88; TEMP 36.6; O2SAT 95; Ht 177.8 cm; Wt 101.1 kg
[2017-08-04] MEDS: LACTATED RINGER'S 1000ML 1,000 ML IV SCH ×2 (18:06→21:41)
[2017-08-04] MEDS ORDERED: CALC500C3 PO (18:14)
[2017-08-04] MEDS ORDERED: PANCCAP2 PO (18:14)
[2017-08-04] MEDS ORDERED: CARV25TA2 PO (18:14)
[2017-08-04] MEDS ORDERED: EZET10TA47 PO (18:14)
[2017-08-04] MEDS ORDERED: RXC5 PO (18:14)
[2017-08-04] MEDS ORDERED: CRG25 PO (18:16)
[2017-08-04 19:20] VITALS: BP 167/108; PULSE 79; TEMP 36.4; O2SAT 95
[2017-08-04] MEDS: ENOXAPARIN 40 MG/0.4 ML SYR SC SCH (21:28)
[2017-08-04] MEDS: DOCUSATE SODIUM 100 MG CAP PO SCH (21:35)
[2017-08-04] MEDS: CARVEDILOL 25 MG TAB PO SCH (21:36)
[2017-08-04] MEDS: GEMFIBROZIL 600 MG TAB PO SCH (21:37)
[2017-08-04 23:23] VITALS: BP 168/95; PULSE 69; TEMP 36.4; O2SAT 98
[2017-08-04] MEDS ORDERED: LOSARTAN POTASSIUM 50 MG TAB PO ONE (23:30)
[2017-08-04] MEDS ORDERED: hydrOXYzine HCL 10 MG TAB PO PRN (23:30)
[2017-08-04] MEDS ORDERED: ACETAMINOPHEN 325 MG TAB PO PRN (23:30)
[2017-08-04] MEDS ORDERED: KETOROLAC TROMETHAMINE 30 MG/ML VIAL IV PRN (23:30)
[2017-08-05] VITALS (9 sets, daily range): BP systolic 146–195; BP diastolic 82–112; PULSE 61–77; TEMP 36.4–37; O2SAT 92–98
[2017-08-05] MEDS: OXYCODONE HCL IR 5 MG TAB (IMMEDIATE RELEASE) PO PRN ×2 (00:21→19:55)
[2017-08-05] MEDS: LACTATED RINGER'S 1000ML 1,000 ML IV SCH ×2 (02:50→08:06)
[2017-08-05 07:48] LABS: HEMATOCRIT 41.9 % (42-52); HEMOGLOBIN 14.9 g/dL (14.0-18.0); MEAN CELL VOLUME 90.5 fL (80-100); MEAN CORPUSCULAR HEMOGLOBIN 32.2 pg (25-34); MEAN CORPUSCULAR HGB CONC 35.6 g/dl (32-36); MEAN PLATELET VOLUME 9.4 fL (7.4-10.4); PLATELET COUNT 301 K/uL (130-400); RED CELL DISTRIBUTION WIDTH CV 12.4 % (11.5-14.5); RED CELL DISTRIBUTION WIDTH SD 40.9 fL (36.4-46.3); WHITE BLOOD COUNT 5.64 K/uL (4.8-10.8)
[2017-08-05] MEDS: EZETIMIBE 10MG TAB PO SCH (08:05)
[2017-08-05] MEDS: GEMFIBROZIL 600 MG TAB PO SCH ×2 (08:05→19:55)
[2017-08-05] MEDS: CARVEDILOL 25 MG TAB PO SCH ×2 (08:06→19:56)
[2017-08-05] MEDS: DOCUSATE SODIUM 100 MG CAP PO SCH ×2 (08:06→20:02)
[2017-08-05 08:27] LABS: ALBUMIN 3.7 gm/dl (3.4-5.0); CALCIUM 8.8 mg/dl (8.5-10.1); POTASSIUM 4.4 mmol/L (3.5-5.1); TOTAL PROTEIN 7.5 gm/dl (6.4-8.2)
[2017-08-05] MEDS ORDERED: LOSARTAN POTASSIUM 50 MG TAB PO SCH (09:00)
--- NOTE | 2017-08-05 09:46 | Progress Note ---
Internal Med Progress Note Date of Service: Aug 05, 2017. Provider Documentation: SUBJECTIVE: Seen and examined at bedside Abdominal pain is much improved Denies chest pain, SOB, dizziness, nausea No other complaints OBJECTIVE: Vital Signs-as noted below Physical Exam: General Appearance:Moderately built and nourished, no apparent distress Head: normocephalic, Atraumatic Eyes: normal inspection, EOMI, PERRL Neck: supple, Trachea midline Respiratory/Chest: Normal breath sounds, CTA Cardiovascular: S1, S2, No murmur Abdomen/GI:Soft, Mild Epigastric tenderness, Bowel sounds present Extremities/Musculoskelatal:normal inspection, no edema Neurologic/Psych:AAOX3, grossly no focal neurological deficits Skin: normal color, warm Lab data as noted below. ASSESSMENT & PLAN: Patient is a 56 yr male with a PMH of chronic recurrent pancreatitis, HTN and hypertriglyceridemia who presents with worsening central abdominal pain 6 days. Abdominal pain: H/O chronic recurrent pancreatitis: Lipase wnl CT abd pelvis:No acute process Mild Transaminitis likely 2/2 Hepatic steatosis decrease IV fluids Advance diet to low fat diet as tolerated GI consulted Advised healthy lifestyle changes Hypertensive urgency: Improved Could be pain meds withdrawal contributing Continue home meds IV labetolol, PO clonidine PRN follows with Cardiology and Nephrology as outpatient Consult Nephrology for further Input Hypertriglyceridemia: Much improved from prior studies Continue gemfibrozil, Zetia DVT Px: SQ Lovenox Code status: Full Code Dispo: monitor in telemetry Vital Signs: Date Time Temp Pulse Resp B/P (MAP) Pulse Ox O2 Delivery O2 Flow Rate FiO2 08/05/17 18:03 171/99 (123) 08/05/17 16:00 Room Air 08/05/17 15:37 36.4 66 20 181/96 (124) 98 Room Air 08/05/17 12:00 Room Air 08/05/17 11:48 36.4 63 19 170/91 (117) 96 Room Air 08/05/17 08:00 Room Air 08/05/17 07:49 36.4 65 20 168/88 (114) 97 Room Air 08/05/17 04:00 36.5 61 16 146/82 (103) 97 Room Air 08/05/17 04:00 Room Air 08/05/17 00:02 Room Air 08/04/17 23:23 36.4 69 19 168/95 (119) 98 Room Air 08/04/17 20:00 Room Air 08/04/17 19:20 36.4 79 18 167/108 (127) 95 Room Air Lab Results: Results Past 24 Hours Test 08/05/17 02:00 08/05/17 07:31 Range/Units Urine Color YELLOW Urine Appearance CLEAR CLEAR Urine pH 5.5 4.5-7.5 Urine Specific [place] 1.038 1.000-1.030 Urine Protein NEG NEG Urine Glucose (UA) NEG NEG Urine Ketones NEG NEG Urine Occult Blood NEG NEG Urine Nitrite NEG NEG Urine Bilirubin NEG NEG Urine Urobilinogen NEG NEG Urine Leukocyte Esterase NEG NEG Urine Opiates Screen POS NEG Urine Methadone, Qualitative NEG NEG Urine Barbiturates NEG NEG Urine Phencyclidine (PCP) Level NEG NEG Ur Amphetamine/Methamphetamine NEG NEG MDMA (Ecstasy) Screen NEG NEG Urine Benzodiazepines Screen NEG NEG Urine Cocaine Metabolite NEG NEG Urine Marijuana (THC) NEG NEG White Blood Count 5.64 4.8-10.8 K/uL Red Blood Count 4.63 4.7-6.1 M/uL Hemoglobin 14.9 14.0-18.0 g/dL Hematocrit 41.9 42-52 % Mean Corpuscular Volume 90.5 80-100 fL Mean Corpuscular Hemoglobin 32.2 25-34 pg Mean Corpuscular Hemoglobin Concent 35.6 32-36 g/dl RDW Standard Deviation 40.9 36.4-46.3 fL RDW Coefficient of Variation 12.4 11.5-14.5 % Platelet Count 301 130-400 K/uL Mean Platelet Volume 9.4 7.4-10.4 fL Sodium Level 138 136-145 mmol/L Potassium Level 4.4 3.5-5.1 mmol/L Chloride Level 104 98-107 mmol/L Carbon Dioxide Level 30 21-32 mmol/L Anion Gap 4.0 3-11 mmol/L Blood Urea Nitrogen 13 7-18 mg/dl Creatinine 1.00 0.60-1.40 mg/dl Est Creatinine Clear Calc Drug Dose 99.4 ml/min Estimated GFR () 97.8 Estimated GFR (Non- 84.4 BUN/Creatinine Ratio 12.7 10-20 Random Glucose 95 70-99 mg/dl Calcium Level 8.8 8.5-10.1 mg/dl Total Bilirubin 1.3 0.2-1 mg/dl Aspartate Amino Transf (AST/SGOT) 77 15-37 U/L Alanine Aminotransferase (ALT/SGPT) 88 12-78 U/L Alkaline Phosphatase 89 45-117 U/L Total Protein 7.5 6.4-8.2 gm/dl Albumin 3.7 3.4-5.0 gm/dl Globulin 3.8 2.5-4.0 gm/dl Albumin/Globulin Ratio 1.0 0.9-2 Triglycerides Level 231 0-150 mg/dl Cholesterol Level 260 0-200 mg/dl HDL Cholesterol 45 mg/dl LDL Cholesterol, Calculated 169 mg/dl VLDL Cholesterol, Calculated 46 mg/dl Cholesterol/HDL Ratio 5.8 Lipase 119 73-393 U/L
[2017-08-05] MEDS ORDERED: LABETALOL HCL IV 5 MG/ML 20ML IV PRN (10:15)
--- NOTE | 2017-08-05 11:43 | Gastrointestinal Consultation ---
Gastrointestinal Consultation Date of Consultation: Aug 05, 2017 Attending Physician: Anjali Zhang Consulting Physician: Alyssia Clark Reason for Consultation: Pancreatitis History of Present Illness Patient is a 56 year old male who presented to ED yesterday w c/o abd pain around epigastric area, n/v. He has hx of recurrent pancreatitis suspected to be related to hypertriglyceridemia currently on Gemfibrozil & Zetia, pancreas divisum and cysts/IPMN. He is s/p cholecystectomy in 2014. Denies ETOH or tobacco uses. He reports having flare episodes of abd pain, n/v periodically. Has this similar episode last Friday and tried to manage it at home but eventually couldn't tolerate the pain thus went to ED. His labs showed no signs of leukocytosis, coagulopathy, CMP normal including normal LFTs, and Lipase. CT abd/pelvis w IV contrast showed hepatomegaly and hepatic steatosis, diverticulosis w/o diverticulitis but otherwise no acute/inflammatory issues including normal pancreas. Overnight he was given LR IVF, Dilaudid LINER CHECKER and made NPO except sips and chips. This AM he feels much better, no n/v, said wants to try a diet. Of note, he had a narcotic agreement which was terminated by PCP, and was seeing providers at [facility] - reports last seen 1 year ago and was not satisfied given his narcotic regimen was always changed around by multiple providers. He's been using Oxycodone in outpt setting for his pain. Last MRCP 02/2016: 1. No biliary ductal dilatation status post cholecystectomy. No common bile duct calculi. 2. Heterogeneity with multiple cystic foci within the uncinate process of the pancreas which corresponds the abnormality on prior CT of February 13, 2016. This may be related to acute or chronic pancreatitis or side branch IPMNs however a follow-up CT in 3 months is recommended. Last EUS 03/2016: - Pancreatic parenchymal abnormalities consisting of hyperechoic foci, cysts and hyperechoic strands were noted in the pancreatic body and in the pancreatic tail. - There was no sign of significant pathology in the common bile duct. - There was diffuse abnormal echotexture in the entire examined liver. This was characterized by a hyperechoic appearance. - No specimens collected. Past Medical/Surgical History Medical Problems: (1) Epigastric abdominal pain Status: Acute (2) Epigastric abdominal pain Status: Acute (3) Failure of outpatient treatment Status: Acute (4) Hypertension Status: Chronic (5) Right flank pain Status: Acute Hyperlipidemia Past Surgical History: Tonsillectomy, adenoidectomy Appendectomy Cholecystectomy Dental procedures Family History FH: cancer GRANDMOTHER (lung CA) Gallbladder disease Hypertension FATHER Social History Smoking Status: Never Smoker Alcohol Use: none Drug Use: none Marital Status: Housing Status: lives with family Occupation Status: employed Allergies Coded Allergies: Lisinopril (Verified Adverse Reaction, Intermediate, Cough, 04/24/16) Current Medications Home Meds and Scripts Medications Dose Route/Sig Max Daily Dose Days Date Category Dose Instructions Carvedilol 25 Mg Tab 25 Mg PO BID 08/04/17 Reported Tums (Calcium Carbonate) 500 Mg Chew 1 Tab PO QID PRN 08/04/17 Reported Pancreaze (Pancrelipase (Lipase-Protease-) 1 Cap Cap 1 Cap PO TIDM 08/04/17 Reported Pancreaze 78332 used Oxycodone HCl 5 Mg Tab 5 Mg PO Q6H PRN 08/04/17 Reported Zetia (Ezetimibe) 10 Mg Tab 1 Tab PO DAILY 08/04/17 Reported Gemfibrozil 600 Mg Tab 600 Mg PO BID 04/24/16 Reported Cozaar (Losartan Potassium) 100 Mg Tab 100 Mg PO DAILY 04/24/16 Reported Review of Systems Constitutional: No fever, No chills Respiratory: No cough, No shortness of breath Abdomen: + pain, + nausea, + vomiting Skin: No rash, No itch, No jaundice Physical Exam Date Time Temp Pulse Resp B/P (MAP) Pulse Ox O2 Delivery O2 Flow Rate FiO2 08/05/17 07:49 36.4 65 20 168/88 (114) 97 Room Air 08/05/17 04:00 36.5 61 16 146/82 (103) 97 Room Air 08/05/17 04:00 Room Air 08/05/17 00:02 Room Air 08/04/17 23:23 36.4 69 19 168/95 (119) 98 Room Air 08/04/17 20:00 Room Air 08/04/17 19:20 36.4 79 18 167/108 (127) 95 Room Air 08/04/17 17:20 36.6 88 20 186/110 95 Room Air 08/04/17 16:34 90 16 153/96 92 08/04/17 16:31 153/96 08/04/17 16:10 90 16 08/04/17 16:05 89 18 92 Room Air 08/04/17 16:02 176/93 08/04/17 15:35 84 19 97 Room Air 08/04/17 15:34 84 16 151/103 96 Room Air 08/04/17 15:01 89 19 165/105 97 Room Air 08/04/17 14:31 185/110 08/04/17 14:28 195/118 08/04/17 14:27 83 19 96 Room Air 08/04/17 14:22 83 24 95 Room Air 08/04/17 14:17 81 18 96 Room Air 08/04/17 14:12 86 15 98 Room Air 08/04/17 14:07 87 17 96 Room Air 08/04/17 14:02 223/120 08/04/17 13:51 93 18 91 Room Air 08/04/17 13:38 87 08/04/17 13:32 89 18 175/119 98 Room Air 08/04/17 13:32 175/119 08/04/17 12:54 36.4 123 20 192/117 99 Room Air General Appearance: WD/WN, no apparent distress Eyes: normal inspection, PERRL, EOMI Neck: supple, no JVD, trachea midline Respiratory/Chest: normal breath sounds, no respiratory distress, no accessory muscle use Cardiovascular: regular rate, rhythm, no gallop, no murmur Abdomen: normal bowel sounds, soft, + tenderness (epigastric ) Extremities: normal inspection, no pedal edema, no calf tenderness Neurologic/Psych: alert, normal mood/affect, oriented x 3 Skin: normal color, no jaundice, no rash Laboratory Results Last 24 Hours Test 08/04/17 13:20 08/04/17 13:58 08/04/17 14:00 08/05/17 02:00 Sodium Level 134 mmol/L Potassium Level mmol/L 3.8 mmol/L Chloride Level 103 mmol/L Carbon Dioxide Level 23 mmol/L Anion Gap 8.0 mmol/L Blood Urea Nitrogen 18 mg/dl Creatinine 1.22 mg/dl Est Creatinine Clear Calc Drug Dose 79.1 ml/min Estimated GFR () 76.9 Estimated GFR (Non- 66.3 BUN/Creatinine Ratio 14.3 Random Glucose 90 mg/dl Calcium Level 10.0 mg/dl Total Bilirubin 0.8 mg/dl Aspartate Amino Transf (AST/SGOT) U/L 27 U/L Alanine Aminotransferase (ALT/SGPT) 38 U/L Alkaline Phosphatase 74 U/L Troponin I 0.044 ng/ml Total Protein 9.3 gm/dl Albumin 4.7 gm/dl Globulin 4.6 gm/dl Albumin/Globulin Ratio 1.0 Lipase 116 U/L White Blood Count 8.85 K/uL Red Blood Count 4.79 M/uL Hemoglobin 15.5 g/dL Hematocrit 42.5 % Mean Corpuscular Volume 88.7 fL Mean Corpuscular Hemoglobin 32.4 pg Mean Corpuscular Hemoglobin Concent 36.5 g/dl Platelet Count 317 K/uL Mean Platelet Volume 9.6 fL Neutrophils (%) (Auto) 61.4 % Lymphocytes (%) (Auto) 27.8 % Monocytes (%) (Auto) 7.8 % Eosinophils (%) (Auto) 2.3 % Basophils (%) (Auto) 0.5 % Neutrophils # (Auto) 5.44 K/uL Lymphocytes # (Auto) 2.46 K/uL Monocytes # (Auto) 0.69 K/uL Eosinophils # (Auto) 0.20 K/uL Basophils # (Auto) 0.04 K/uL RDW Standard Deviation 38.6 fL RDW Coefficient of Variation 12.0 % Immature Granulocyte % (Auto) 0.2 % Immature Granulocyte # (Auto) 0.02 K/uL Prothrombin Time 11.0 SECONDS Prothromb Time International Ratio 1.0 Activated Partial Thromboplast Time 28.0 SECONDS Partial Thromboplastin Ratio 1.1 Urine Color YELLOW Urine Appearance CLEAR Urine pH 5.5 Urine Specific [place] 1.038 Urine Protein NEG Urine Glucose (UA) NEG Urine Ketones NEG Urine Occult Blood NEG Urine Nitrite NEG Urine Bilirubin NEG Urine Urobilinogen NEG Urine Leukocyte Esterase NEG Urine Opiates Screen POS Urine Methadone, Qualitative NEG Urine Barbiturates NEG Urine Phencyclidine (PCP) Level NEG Ur Amphetamine/Methamphetamine NEG MDMA (Ecstasy) Screen NEG Urine Benzodiazepines Screen NEG Urine Cocaine Metabolite NEG Urine Marijuana (THC) NEG Test 08/05/17 07:31 White Blood Count 5.64 K/uL Red Blood Count 4.63 M/uL Hemoglobin 14.9 g/dL Hematocrit 41.9 % Mean Corpuscular Volume 90.5 fL Mean Corpuscular Hemoglobin 32.2 pg Mean Corpuscular Hemoglobin Concent 35.6 g/dl RDW Standard Deviation 40.9 fL RDW Coefficient of Variation 12.4 % Platelet Count 301 K/uL Mean Platelet Volume 9.4 fL Sodium Level 138 mmol/L Potassium Level 4.4 mmol/L Chloride Level 104 mmol/L Carbon Dioxide Level 30 mmol/L Anion Gap 4.0 mmol/L Blood Urea Nitrogen 13 mg/dl Creatinine 1.00 mg/dl Est Creatinine Clear Calc Drug Dose 99.4 ml/min Estimated GFR () 97.8 Estimated GFR (Non- 84.4 BUN/Creatinine Ratio 12.7 Random Glucose 95 mg/dl Calcium Level 8.8 mg/dl Total Bilirubin 1.3 mg/dl Aspartate Amino Transf (AST/SGOT) 77 U/L Alanine Aminotransferase (ALT/SGPT) 88 U/L Alkaline Phosphatase 89 U/L Total Protein 7.5 gm/dl Albumin 3.7 gm/dl Globulin 3.8 gm/dl Albumin/Globulin Ratio 1.0 Triglycerides Level 231 mg/dl Cholesterol Level 260 mg/dl HDL Cholesterol 45 mg/dl LDL Cholesterol, Calculated 169 mg/dl VLDL Cholesterol, Calculated 46 mg/dl Cholesterol/HDL Ratio 5.8 Lipase 119 U/L Impression Patient is a 56 year old male admitted for epigastric area abd pain, n/v which is significantly improved now per his report. He has hx recurrent pancreatitis suspected due to divisum, cyst/IPMN, hypertriglyceridemia. Last EUS and MRCP in 2016. In this admission, unlike his previous admission for pancreatitis, his lipase is normal and CT showed normal appearing pancreas w/o any other obstructing/inflammatory changes. Thus doubt he has a recurrent pancreatitis episode. Plan - Start CL diet, advance as tolerated to low fat diet - Pancreas enzyme w meals TID - Protonix 40mg BID - Recommend DC'ing LINER CHECKER and weaning off narcotic given hx of abuse, PCP had terminated narcotic agreement. He previously follows with [facility] , but not sure if he wants to continue care there. Pain Medicine referral already placed by PCP on 07/21/17. - May DC as soon as he can tolerate diet w/o aggravation of pain or n/v. - Will consider repeating EUS w EGD if he has another episode of pancreatitis attg Add: I interviewed and examined pt, reviewed chart and labs. Pt with h/o chronic abd pain from chronic panc, intermittently now on narcotics, now presents to ER with worsening abd pain. PCP recently refused to refill narcotics. Labs and Imaging are unrmarkable. His Trigs are mildly increased. Chronic panc, presumably from hyperTG. - Cont Lopid - Can cont empiric non enteric coated panc enzymes if pt has relief of these. - Diet as tolerated. - Pain management consult. Please call with questions.
[2017-08-05] MEDS ORDERED: CLONIDINE HCL 0.1 MG TAB PO PRN (16:30)
[2017-08-05] MEDS ORDERED: NURSING VERBAL MED ORDER ONE ×2 (16:45→19:00)
[2017-08-05] MEDS: PANCREAZE (LIPASE 10,500U) CAP PO SCH (16:55)
[2017-08-05] MEDS ORDERED: LOSARTAN POTASSIUM 50 MG TAB PO ONE (17:15)
[2017-08-05] MEDS: ENOXAPARIN 40 MG/0.4 ML SYR SC SCH (18:00)
[2017-08-05] MEDS ORDERED: HYG/25 PO (18:53)
[2017-08-05] MEDS ORDERED: TERA1CAP63 PO (18:53)
[2017-08-05] MEDS ORDERED: AMLO-110 PO (18:53)
[2017-08-05] MEDS: PANTOprazole SOD 40 MG TAB PO SCH (19:56)
[2017-08-06 03:49] VITALS: BP 153/90; PULSE 69; TEMP 36.6; O2SAT 95
[2017-08-06] MEDS: OXYCODONE HCL IR 5 MG TAB (IMMEDIATE RELEASE) PO PRN (06:25)
[2017-08-06 07:46] VITALS: BP 171/97; PULSE 69; TEMP 36.4; O2SAT 98
[2017-08-06] MEDS: PANCREAZE (LIPASE 10,500U) CAP PO SCH (07:57)
[2017-08-06] MEDS: DOCUSATE SODIUM 100 MG CAP PO SCH (07:58)
[2017-08-06] MEDS: CARVEDILOL 25 MG TAB PO SCH (07:58)
[2017-08-06] MEDS: GEMFIBROZIL 600 MG TAB PO SCH (08:01)
[2017-08-06] MEDS: PANTOprazole SOD 40 MG TAB PO SCH (08:03)
[2017-08-06] MEDS: EZETIMIBE 10MG TAB PO SCH (08:04)
--- NOTE | 2017-08-06 08:59 | Progress Note ---
Internal Med Progress Note Date of Service: Aug 06, 2017. Provider Documentation: SUBJECTIVE: Seen and examined at bedside States feeling much better today Still has some Abdominal pain Had BM today Denies chest pain, SOB, dizziness, nausea, headache, change in vision No other complaints Refused Blood work, eager to get discharged BP better Tolerating diet OBJECTIVE: Vital Signs-as noted below Physical Exam: General Appearance:Moderately built and nourished, no apparent distress Head: normocephalic, Atraumatic Eyes: normal inspection, EOMI, PERRL Neck: supple, Trachea midline Respiratory/Chest: Normal breath sounds, CTA Cardiovascular: S1, S2, No murmur Abdomen/GI:Soft, Mild Epigastric tenderness, Bowel sounds present Extremities/Musculoskelatal:normal inspection, no edema Neurologic/Psych:AAOX3, grossly no focal neurological deficits Skin: normal color, warm Lab data as noted below. ASSESSMENT & PLAN: Patient is a 56 yr male with a PMH of chronic recurrent pancreatitis, HTN and hypertriglyceridemia who presents with worsening central abdominal pain 6 days. Abdominal pain: H/O chronic recurrent pancreatitis: Likely secondary to divisum, Hypertriglyceridemia Lipase wnl CT abd pelvis:No acute process Mild Transaminitis likely 2/2 Hepatic steatosis IV fluids discontinued Advanced diet to low fat diet, tolerating Appreciate GI Input Advised healthy lifestyle changes Hypertensive urgency: H/O uncontrolled HTN Could be pain meds withdrawal contributing Continue home meds IV labetolol, PO clonidine PRN follows with Cardiology and Nephrology as outpatient Appreciate Nephrology Input Started on Aldactone 25mg daily Hypertriglyceridemia: Much improved from prior studies Continue gemfibrozil, Zetia DVT Px: SQ Lovenox Code status: Full Code Disposition: Plan to discharge home when stable Follow up with your Primary Care Physician on 08/07/17 at 10:05AM Follow up with your Entry Driver Operator as advised Follow up with Pain management clinic as advised Seek immediate medical attention if your symptoms reoccur or worsen Vital Signs: Date Time Temp Pulse Resp B/P (MAP) Pulse Ox O2 Delivery O2 Flow Rate FiO2 08/06/17 08:30 Room Air 08/06/17 08:00 Room Air 08/06/17 07:46 36.4 69 18 171/97 (121) 98 Room Air 08/06/17 04:39 Room Air 08/06/17 03:49 36.6 69 18 153/90 (111) 95 Room Air 08/06/17 00:00 Room Air 08/05/17 23:32 37.0 65 18 146/91 (109) 95 Room Air 08/05/17 21:12 171/105 (127) 08/05/17 20:00 98 Room Air 08/05/17 19:34 36.6 77 24 195/112 (139) 92 Room Air 08/05/17 18:03 171/99 (123) 08/05/17 16:00 Room Air 08/05/17 15:37 36.4 66 20 181/96 (124) 98 Room Air 08/05/17 12:00 Room Air 08/05/17 11:48 36.4 63 19 170/91 (117) 96 Room Air
[2017-08-06] MEDS ORDERED: CHLORTHALIDONE 25 MG TAB PO SCH (09:00)
[2017-08-06] MEDS ORDERED: AMLODIPINE BESYLATE 5 MG TAB PO SCH (09:00)
[2017-08-06] MEDS ORDERED: LOSARTAN POTASSIUM 50 MG TAB PO SCH (09:00)
[2017-08-06] MEDS ORDERED: SPIRONOLACTONE 25 MG TAB PO SCH (10:30)
[2017-08-06] MEDS ORDERED: CLC100 PO (10:44)
[2017-08-06] MEDS ORDERED: SPR25 PO (10:44)
[2017-08-06] MEDS ORDERED: MRLP17X PO (10:44)
[2017-08-06] MEDS ORDERED: RXC5 PO (10:44)
[2017-08-06] MEDS ORDERED: PRT40 PO (10:44)
--- NOTE | 2017-08-06 10:47 | Discharge Summary ---
Discharge Summary Date of Service Aug 06, 2017. Discharge Summary Admission Date: Aug 04, 2017 at 16:00 Discharge Date: Aug 06, 2017 Discharge Disposition: Home Principal Diagnosis: Chronic Pancreatitis, Hypertensive Urgency Procedures: CT ABD: 1. There are no acute infectious or inflammatory findings in the abdomen or pelvis. 2. Hepatomegaly and hepatic steatosis. 3. Mild colonic diverticulosis without CT evidence of acute diverticulitis. CXR: No active disease in the chest. Consultations: GI, Nephrology Pending Studies/Follow-Up: Follow up with your Primary Care Physician on 08/07/17 at 10:05AM Follow up with your Exhibit Carpenter as advised Follow up with Pain management clinic as advised Follow up with your Refrigerating Technician in 4 weeks Seek immediate medical attention if your symptoms reoccur or worsen Medication Reconciliation New Medications: Docusate Sodium (Docusate Sodium) 100 Mg Cap 100 MG PO BID PRN for constipation, #14 CAP Pantoprazole (Pantoprazole Sodium) 40 Mg Tab 40 MG PO BID for 30 Days, #60 TAB Polyethylene (Miralax) 17 Gm Pow 17 GM PO DAILY PRN for Constipation for 7 Days, #7 EA Spironolactone (Spironolactone) 25 Mg Tab 25 MG PO QAM for 30 Days, #30 TAB 1 Refill Continued Medications: Amlodipine (Norvasc) 5 Mg Tab 10 MG PO DAILY, TAB Calcium Carbonate (Tums) 500 Mg Chew 1 TAB PO QID PRN for heartburn/upset stomach, BTL Carvedilol (Carvedilol) 25 Mg Tab 25 MG PO BID, TAB Chlorthalidone (Hygroton) 25 Mg Tab 1 TAB PO DAILY for 30 Days, #30 TAB 5 Refills Ezetimibe (Zetia) 10 Mg Tab 1 TAB PO DAILY, TAB 5 Refills Gemfibrozil (Gemfibrozil) 600 Mg Tab 600 MG PO BID Losartan Potassium (Cozaar) 100 Mg Tab 100 MG PO DAILY Oxycodone HCl (Oxycodone HCl) 5 Mg Tab 5 MG PO Q6H PRN for Pain for 2 Days, #8 TAB (This prescription has been renewed) Pancrelipase (Lipase-Protease- (Pancreaze) 1 Cap Cap 1 CAP PO TIDM Pancreaze [id number] used Terazosin Hcl (Hytrin) 10 Mg Cap 10 MG PO HS, CAP Admission Information HPI (per Admitting provider): This is a 56yo M with a PMH of chronic recurrent pancreatitis, HTN and hypertriglyceridemia who presents with worsening central abdominal pain 6 days. Patient has experienced many episodes of pancreatitis starting in 2006. Was most recently admitted for a flare of pancreatitis in February 2017. Underwent a cholecystectomy in 2014 but flares have continued to recur. Follows with [facility] gastroenterology. Pancreatitis thought to be 2/2 hypertriglyceridemia and pancreatic divisum. 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 Patient states that he can usually control flare ups at home by switching to a liquid diet and managing pain. However, this time his abdominal pain persisted and worsened over the weekend. Describes central abd pain as constant and stabbing with radiation to his back. Was a 10/10 but is now a 7/10 after receiving 6mg morphine x 2 and 1mg dilaudid. Endorses nausea but no vomiting, fever, chills or diarrhea. Denies lightheadedness, headache, visual changes, chest pain, SOB, vomiting or dysuria. Physical Exam (per Admitting): General Appearance: + moderate distress, + pertinent finding (Grimacing from pain ) Head: normocephalic, atraumatic Eyes: normal inspection (pinpoint pupils), sclerae normal ENT: normal ENT inspection, hearing grossly normal, pharynx normal (dry mucous membranes ) Neck: supple, trachea midline Respiratory/Chest: chest non-tender, lungs clear, normal breath sounds, no respiratory distress, no accessory muscle use Cardiovascular: regular rate, rhythm, no murmur, normal peripheral pulses Abdomen/GI: + tenderness (Diffuse TTP (most tender in midepigastrim, central abd)), + guarding Back: normal inspection Extremities/Musculoskelatal: normal inspection, no calf tenderness, no pedal edema Neurologic/Psych: no motor/sensory deficits, alert, normal mood/affect, oriented x 3 Skin: normal color, warm/dry Hospital Course Patient is a 56 yr male with a PMH of chronic recurrent pancreatitis, HTN and hypertriglyceridemia who presents with worsening central abdominal pain 6 days. Abdominal pain: H/O chronic recurrent pancreatitis: Likely secondary to divisum, Hypertriglyceridemia Lipase wnl CT abd pelvis:No acute process Mild Transaminitis likely 2/2 Hepatic steatosis IV fluids discontinued Advanced diet to low fat diet, tolerating Appreciate GI Input Advised healthy lifestyle changes Plan for EUS w EGD if he has another episode of pancreatitis as per GI Hypertensive urgency: H/O uncontrolled HTN Could be pain meds withdrawal contributing Continue home meds IV labetolol, PO clonidine PRN follows with Cardiology and Nephrology as outpatient Appreciate Nephrology Input Started on Aldactone 25mg daily Hypertriglyceridemia: Much improved from prior studies Continue gemfibrozil, Zetia DVT Px: SQ Lovenox Code status: Full Code Disposition: Plan to discharge home when stable Follow up with your Primary Care Physician on 08/07/17 at 10:05AM Follow up with your Exhibit Carpenter as advised Follow up with Pain management clinic as advised Seek immediate medical attention if your symptoms reoccur or worsen Total time spent on discharge =33 minutes This includes examination of the patient, discharge planning, medication reconciliation, and communication with other providers. Discharge Instructions Discharge Instructions Date of Service Aug 06, 2017. Admission Reason for Admission: Chronic Pancreatitis, Hypertensive Urgency Discharge Discharge Diagnosis / Problem: Chronic Pancreatitis, Hypertensive Urgency Discharge Goals Goal(s): Decrease discomfort, Improve function Activity Recommendations Activity Limitations: resume your previous activity Exercise/Sports Limitations: as tolerated . Instructions / Follow-Up Instructions / Follow-Up Follow up with your Primary Care Physician on 08/07/17 at 10:05AM Follow up with your Exhibit Carpenter as advised Follow up with Pain management clinic as advised Follow up with your Refrigerating Technician in 4 weeks Seek immediate medical attention if your symptoms reoccur or worsen Current Hospital Diet Patient's current hospital diet: Low Fat Diet Discharge Diet Recommended Diet: Low Fat Diet Pending Studies Studies pending at discharge: no Laboratory Results Lipid Panel Test 08/05/17 07:31 Range/Units Triglycerides Level 231 H 0-150 mg/dl Cholesterol Level 260 H 0-200 mg/dl HDL Cholesterol 45 mg/dl Cholesterol/HDL Ratio 5.8 LDL Cholesterol, Calculated 169 mg/dl Medical Emergencies . Who to Call and When: Medical Emergencies: If at any time you feel your situation is an emergency, please call 911 immediately. . Non-Emergent Contact Non-Emergency issues call your: Primary Care Provider, Exhibit Carpenter Call Non-Emergent contact if: you have a fever, your pain is not controlled, your pain is worsening, your pain is unusual for you, your pain is concerning you, you have any medication questions Seek immediate medical attention if your symptoms reoccur or worsen . . "Provider Documentation" section prepared by Cole Alexander. .
[2017-08-06 11:12] VITALS: BP 171/97; PULSE 69; TEMP 36.4; O2SAT 98
--- NOTE | 2017-08-06 11:42 | NEPHROLOGY CONSULTATION ---
DATE OF CONSULTATION: 08/06/2017 ATTENDING OF RECORD: Dr. Alexander REASON FOR CONSULTATION: Hypertension. HISTORY OF PRESENT ILLNESS: This is a 56-year-old male who I have seen once in April for evaluation of hypertension. The patient has had hypertension for about 10 years. He does have a home blood pressure cuff and does check it usually at night. Blood pressures tend to be in the 140s to 160s over low 100s and the patient feels it has been that way for several years ever since he has had his gallbladder out. The patient also follows with cardiology and has a history of hypertriglyceridemia and suffers from chronic abdominal pain with a history of chronic pancreatitis and follows with GI closely. When I evaluated the patient, he was currently on terazosin 5 mg at night, Coreg 12.5 b.i.d., chlorthalidone 25 mg a day, losartan 100, Norvasc 10 mg a day. I did double the Coreg to 25 mg twice a day and was interested in starting the patient on spironolactone at next visit. I did do a secondary workup for his hypertension with plasma metanephrines, which were normal and an narendra-rennin ratio that was normal with aldosterone level of 5 and PRA of 1.72 and a ratio of 2.9. I did want to do a renal vascular scan which was not done yet. They did an abdominal and pelvis CT showing that the kidneys enhance symmetrically with signs of hepatomegaly and fatty liver with mild diverticulosis. The patient did present with significant abdominal pain and blood pressure was quite elevated at 192/117 and 223/120, likely pain-mediated, currently now 153/90, 171/97, and abdominal pain has improved to 5/10. PAST MEDICAL/SURGICAL HISTORY: Chronic recurrent pancreatitis, hyperlipidemia, hypertension, hypertriglyceridemia, hernia repair, appendectomy, tonsillectomy, cholecystectomy. FAMILY HISTORY: Significant for hypertension. SOCIAL HISTORY: No smoking, no alcohol, no drugs. He is and lives with . REVIEW OF SYSTEMS: Chronic abdominal pain. No headaches, no blurry vision, no dysphagia, no chest pain or shortness of breath. No diarrhea or constipation. No hematuria. No rash or itching. All other review of systems otherwise negative. CURRENT MEDICATIONS: Cozaar 100 mg a day, Norvasc 10 mg a day, chlorthalidone 25 mg a day, terazosin 10 mg at night, pancrease enzymes with meals, Coreg 25 mg p.o. b.i.d., Zetia 10 mg a day. PHYSICAL EXAMINATION: VITAL SIGNS: Temperature 36.4, pulse 69, respiratory rate 18, blood pressure 171/97, satting 98% on room air. GENERAL: Awake, alert, oriented x3. EYES: No scleral icterus. ENT: Moist mucous membranes. NECK: Supple. PULMONARY: Clear to auscultation. CARDIAC: Regular rate and rhythm. ABDOMEN: Bowel sounds positive, soft, nontender, nondistended. EXTREMITIES: No clubbing, cyanosis, or edema. NEUROLOGICALLY: Nonfocal. DERMATOLOGIC: No rash or ulcers noted. LABORATORIES: White count is 5.6, H and H 14.9 and 42, platelet count is 301. Sodium is 138, potassium is 4.4, chloride is 104, bicarb is 30, BUN is 13, creatinine is 1, glucose 95, calcium is 8.8. T-bili is 1.3, AST 77, ALT 88. Triglycerides 231, cholesterol is 260. Lipase 119. Urine opiates positive. UA is bland. ASSESSMENT AND PLAN: Hypertension. Blood pressure is better with better pain management, currently on Cozaar 100, Norvasc 10, chlorthalidone 25, terazosin 10, Coreg 25 b.i.d. We would like to add spironolactone 25 mg a day and we will give first dose now and monitor potassium levels. Secondary workup is essentially negative. We would continue to work on pain management to help control the blood pressure and continue the current meds with the addition of spironolactone. We would repeat BMP in a week to follow potassium and kidney function numbers. I appreciate the consultation.
== END 2017-08-06 11:45 | disposition home or self-care (01) | DRG 439 ==
LOC: C.EDB 12:51 → C.2T 16:00 → ENRESERV 16:14
PROVIDERS: ADMIT Hospitalist; ATTEND Internal Medicine
DX: K85.90 Acute pancreatitis without necrosis or infection, unspecified (principal); F11.23 Opioid dependence with withdrawal; K86.1 Other chronic pancreatitis; I16.0 Hypertensive urgency; I10 Essential (primary) hypertension; E78.1 Pure hyperglyceridemia; Z79.899 Other long term (current) drug therapy; Z88.8 Allergy status to other drugs, medicaments and biological substances; Z91.14 Patient's other noncompliance with medication regimen

== ENCOUNTER 2019-01-14 08:10 | Inpatient (IN) ==
[2019-01-14] MEDS ORDERED: SODIUM CHLORIDE 0.9% 1000ML 1,000 ML IV ONE (08:30)
[2019-01-14] MEDS ORDERED: ONDANSETRON INJ 2 MG/ML 2 ML VIAL IV STA (08:30)
[2019-01-14] MEDS ORDERED: MoRPHine SULFATE 10 MG/ML CARP/VIAL IV STA (08:30)
--- NOTE | 2019-01-14 08:40 | Emergency Department Note ---
History of Present Illness General Chief Complaint: Abdominal Pain Stated Complaint: RT SIDE AND BACK PAIN Source: patient Mode of arrival: ambulatory Limitations: no limitations History of Present Illness Provider Complaint: abdominal pain Onset (ago): 4 day(s) Pain Consistency: intermittent Location: epigastric Radiation: RUQ and R flank Migration to: no migration Severity: severe Maximum Pain Intensity: 9 Current Pain Intensity: 9 Quality: + sharp Relieved By: + nothing Exacerbated By: + eating Context: + history of similar episodes (Associated with pancreatitis) Associated Symptoms: + nausea, + vomiting, + diarrhea and + chills This 58-year-old male patient with significant past medical history of acute pancreatitis presents the emergency department today, ambulatory, complaining of epigastric and right upper quadrant pain radiating to the right flank which began 3 to 4 days ago. The pain was previously intermittent, but worsened significantly after eating [place] meatballs and noodles for dinner last night. The patient states he has not had a fever, but does report diarrhea for the past 2 days. The patient states he has not experience any urinary symptoms, hematuria, or lower abdominal pain. He states he has had a dry cough for several weeks. He denies any chest pain, dyspnea, numbness, tingling, headache, dizziness, weakness. His pancreatitis is managed by Dr. Saez, jayda roenterologist with [facility]. Home Medications Home Medications Medication Instructions Recorded Confirmed Type amlodipine 10 mg PO DAILY 01/14/19 01/14/19 History aspirin 81 mg PO DAILY 01/14/19 01/14/19 History carvedilol 25 mg PO BID 01/14/19 01/14/19 History [id number] [Pancreaze] 2 cap PO TID 01/14/19 01/14/19 History losartan 100 mg PO DAILY 01/14/19 01/14/19 History pantoprazole 20 mg PO DAILY 01/14/19 01/14/19 History rosuvastatin 20 mg PO DAILY 01/14/19 01/14/19 History Allergies Allergy/AdvReac Type Severity Reaction Status Date / Time lisinopril AdvReac Intermediate Cough Verified 01/14/19 08:51 Past Med/Surg History Medical History SHANIQUA (obstructive sleep apnea) (Chronic) History of gastroesophageal reflux (GERD) (Chronic) Pancreatitis (Chronic) Hypertension (Chronic) Dyslipidemia (Chronic) Hypertriglyceridemia (Chronic) Chronic recurrent pancreatitis (Chronic) Hypertensive urgency (Resolved) Surgical History S/P tonsillectomy and adenoidectomy (Chronic) S/P appendectomy (Chronic) H/O inguinal hernia repair (Chronic) History of dental surgery (Chronic) H/O colonoscopy (Chronic) H/O laparoscopy (Chronic) H/O esophagogastroduodenoscopy (Chronic) Social History Preferred Language: Bermudian Communication Ability: Effective 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 Beliefs That Will Affect Care: None Current Living Situation: Spouse Other Information That Helps Us Care for You: No Feels Safe at Home: No Is there a partner from a previous relationship who is making you feel unsafe now?: No Any Concerns about Your Family Situation: No Would You Like to Speak to Someone About Your Situation: No Safety Concerns: Feels Safe At This Time Smoking Status: Never smoker Second Hand Exposure: No ; Hx Alcohol Use: No Hx Substance Use: No Review of Systems A total of 10 systems reviewed and were otherwise negative Physical Exam Vital Signs: Vital Signs - 24 hr 01/14/19 08:12 01/14/19 08:30 01/14/19 09:30 Temperature 36.7 C Temperature Source Oral Sepsis Recent Feve r Within 48 Hours No Sepsis New/Unexpla ined Change in Men radha Status No Sepsis Action Take n by Nursing No Action Required Pulse Rate 123 H Pulse Rate [Finger ] 85 Respiratory Rate 20 18 Respiratory Effort / Characteristics Respiratory Depth Blood Pressure 191/126 H Blood Pressure [Ri ght Arm] 184/104 H Blood Pressure Delmi n 147 Blood Pressure Delmi n [Right Arm] 130 Pulse Oximetry 97 97 99 Oxygen Delivery Me thod Room Air Room Air 01/14/19 09:56 01/14/19 10:06 01/14/19 10:08 Temperature Temperature Source Sepsis Recent Feve r Within 48 Hours Sepsis New/Unexpla ined Change in Men radha Status Sepsis Action Take n by Nursing Pulse Rate Pulse Rate [Finger ] 99 H 91 H 84 Respiratory Rate 20 24 24 Respiratory Effort / Characteristics Non-Labored Respiratory Depth Normal Blood Pressure Blood Pressure [Ri ght Arm] 203/137 H 194/115 H 188/111 H Blood Pressure Delmi n Blood Pressure Delmi n [Right Arm] 159 141 136 Pulse Oximetry 99 96 96 Oxygen Delivery Me thod Room Air Room Air Room Air 01/14/19 10:27 01/14/19 11:42 01/14/19 11:52 Temperature Temperature Source Sepsis Recent Feve r Within 48 Hours Sepsis New/Unexpla ined Change in Men radha Status Sepsis Action Take n by Nursing Pulse Rate Pulse Rate [Finger ] 85 96 H 92 H Respiratory Rate 16 20 22 Respiratory Effort / Characteristics Non-Labored Respiratory Depth Normal Blood Pressure Blood Pressure [Ri ght Arm] 191/120 H 190/115 H 162/107 H Blood Pressure Delmi n Blood Pressure Delmi n [Right Arm] 143 140 125 Pulse Oximetry 97 97 96 Oxygen Delivery Me thod Room Air Room Air Room Air Physical Exam: VITALS: Vitals are noted on the nurse's note and reviewed by myself. Vital signs stable. GENERAL: This is a 58-year-old obese white male, in no acute distress, nondiaphoretic, well-developed well-nourished. SKIN: The skin was without rashes, erythema, edema, or bruising. There is no tenting of the skin. Capillary reflex less than 2 seconds. HEAD: Normocephalic atraumatic. EARS: External auditory canals clear, tympanic membranes pearly estes without erythema or effusion bilaterally. EYES: Pupils equal round and reactive to light and accommodation. Conjunctivae without injection, sclerae without icterus. Extraocular movements intact. NOSE: Patent, turbinates without inflammation or discharge. No sinus tenderness. MOUTH: Mucous membranes moist. Tonsils are not enlarged. Pharynx without erythema or exudate. Uvula midline. Airway patent. Tongue does not deviate. NECK: Supple without nuchal rigidity. No lymphadenopathy. No thyromegaly. Cervical spine is nontender. No JVD. HEART: Regular rate and rhythm without murmurs gallops or rubs. LUNGS: Clear to auscultation bilaterally without wheezes, rales or rhonchi. No dullness to percussion. No retractions or accessory muscle use. ABDOMEN: Positive bowel sounds x 4. Normal tympanic percussion. Significant epigastric and right upper quadrant tenderness to palpation. The abdomen is very distended. The abdomen is otherwise without masses or organomegaly. Ramirez sign negative. No guarding or rebound tenderness. MUSCULOSKELETAL: No muscle atrophy, erythema, or edema noted. Full range of motion without joint tenderness in all extremities. No tenderness to palpation. Normal gait. Strength 5/5 throughout. NEURO: Patient was alert and oriented to person place and time. Normal sen sation to light and sharp touch. Deep tendon reflexes 2+ throughout. No focal neurological deficits. Course The patient was seen and evaluated as above. IV access obtained, labs drawn. Patient medicated with IV fluids, morphine, and Zofran. Imaging performed and reviewed by myself and radiologist as above. Labs reviewed by myself. I discussed the findings with the patient at bedside. He was reassessed and continues to complain of 8/10 abdominal pain. Patient's blood pressure was significantly elevated. I discussed the case with my attending. Patient was given Lopressor and Dilaudid. I did recommend admission and the patient was agreeable. I discussed the case with the case worker. I discussed the case with the hospitalist,Jenny Alexis PA-C. She did agree to see and evaluate the patient for admission/observation. Please see h ospitalist dictation regarding ongoing management care of this patient. Administered Medications Amlodipine Besylate (Norvasc) 10 mg PO DAILY KODAK Stop: 02/13/19 12:50 Last Admin: 01/14/19 13:58 Dose: 10 mg Documented by: [id number] Lactated Ringer's (Lr) 1,000 mls @ 200 mls/hr IV .Q5H KODAK Stop: 02/13/19 13:14 Last Admin: 01/14/19 13:11 Dose: 50 mls/hr Documented by: [id number] Enalaprilat 1.25 mg/ Dextrose 26 mls @ 100 mls/hr IV Q6H KODAK Stop: 01/15/19 13:59 Last Infusion: 01/14/19 13:44 Dose: 0 mls/hr Documented by: [id number] Admin: 01/14/19 13:26 Dose: 100 mls/hr Documented by: [id number] Morphine Sulfate (Morphine Sulfate) 4 mg IV Q3H PRN PRN Reason: Pain Stop: 01/28/19 12:50 Last Admin: 01/14/19 13:59 Dose: 4 mg Documented by: [id number] Discontinued Medications Hydromorphone HCl (Dilaudid) 1 mg IV NOW STA Stop: 01/14/19 09:58 Last Admin: 01/14/19 10:03 Dose: 1 mg Documented by: [id number] Hydromorphone HCl (Dilaudid) 1 mg IV NOW STA Stop: 01/14/19 11:09 Last Admin: 01/14/19 11:15 Dose: 1 mg Documented by: [id number] Sodium Chloride (Nss 1000ml) 1,000 mls @ 999 mls/hr IV .Q1H1M ONE Stop: 01/14/19 09:30 Last Infusion: 01/14/19 09:49 Dose: 0 mls/hr Documented by: [id number] Admin: 01/14/19 08:43 Dose: 999 mls/hr Documented by: [id number] Enalaprilat 1.25 mg/ Dextrose 26 mls @ 100 mls/hr IV NOW STA Stop: 01/14/19 11:23 Last Infusion: 01/14/19 11:51 Dose: 0 mls/hr Documented by: [id number] Admin: 01/14/19 11:31 Dose: 100 mls/hr Documented by: [id number] Metoprolol Tartrate (Lopressor) 5 mg IV NOW STA Stop: 01/14/19 09:58 Last Admin: 01/14/19 10:03 Dose: 5 mg Documented by: [id number] Morphine Sulfate (Morphine Sulfate) 8 mg IV NOW STA Stop: 01/14/19 08:31 Last Admin: 01/14/19 08:43 Dose: 10 mg Documented by: [id number] Ondansetron HCl (Zofran) 4 mg IV NOW STA Stop: 01/14/19 08:31 Last Admin: 01/14/19 08:43 Dose: 4 mg Documented by: [id number] Medical Decision Making Differential Diagnosis + peptic ulcer disease, + biliary pathology, + UTI, + obstruction, + mesenteric ischemia, + aortic pathology, + infections, + inflammatory bowel disease, + renal colic, + torsion (male), + epididymitis (male), + abdominal pain, + appendicitis, + calculus of kidney, + constipation, + diverticulitis, + endometriosis, + gastroenteritis, + pancreatitis and + small bowel obstruction Medical Records Attestation: I reviewed the patient's medical records. History of pancreatitis with similar symptoms in the past. Home Medications Current Medication List: was personally reviewed by me Laboratory Data Attestation: I reviewed the patient's lab results. No leukocytosis, anemia, thrombocytopenia. Renal, hepatic function, and electrolytes without significant abnormality. Troponin negative. Lipase 135. Urinalysis without evidence of blood or infection. Result diagrams: 01/14/19 08:37 01/14/19 08:37 Lab Results 01/14/19 01/14/19 01/14/19 Range/Units 08:37 08:37 08:37 WBC 8.05 (4.8-10.8) K/uL RBC 4.80 (4.7-6.1) M/uL Hgb 16.0 (14.0-18.0) g/dL Hct 44.2 (42-52) % MCV 92.1 (80-100) fL MCH 33.3 (25-34) pg MCHC 36.2 H (32-36) g/dL RDW Std Deviation 41.7 (36.4-46.3) fL RDW Coeff of Tiara 12.4 (11.5-14.5) % Plt Count 310 (130-400) K/uL MPV 9.8 (7.4-10.4) fL Immature Gran % (Auto) 0.4 % Neut % (Auto) 55.5 % Lymph % (Auto) 32.0 % [place] % (Auto) 10.3 % Eos % (Auto) 1.2 % Baso % (Auto) 0.6 % Immature Gran # (Auto) 0.03 H (0.00-0.02) K/uL Neut # (Auto) 4.46 (1.4-6.5) K/uL Lymph # (Auto) 2.58 (1.2-3.4) K/uL Tama # (Auto) 0.83 H (0.11-0.59) K/uL Eos # (Auto) 0.10 (0-0.5) K/uL Baso # (Auto) 0.05 (0-0.2) K/uL PT 10.9 (9.0-12.0) Seconds INR 1.1 (0.9-1.1) APTT 26.5 (21.0-31.0) Seconds PTT Ratio 1.0 Sodium 132 L (136-145) mmol/L Potassium 3.7 (3.5-5.1) mmol/L Chloride 99 (98-107) mmol/L Carbon Dioxide 24 (21-32) mmol/L Anion Gap 9.0 (3-11) BUN 14 (7-18) mg/dl Creatinine 1.01 (0.6-1.4) mg/dl Est Cr Clr Drug Dosing 91.9 ml/min Est GFR ( Amer) 95.3 Est GFR (Non-Af Amer) 82.2 BUN/Creatinine Ratio 14.2 (10-20) Glucose 100 H (70-99) mg/dl Calcium 9.4 (8.5-10.1) mg/dl Total Bilirubin 0.5 (0.2-1) mg/dl AST 57 H (15-37) U/L ALT 84 H (12-78) U/L Alkaline Phosphatase 80 (45-117) U/L Troponin I < 0.015 (0-0.045) ng/ml Total Protein 8.6 H (6.4-8.2) gm/dl Albumin 4.3 (3.4-5.0) gm/dl Globulin 4.3 H (2.5-4.0) gm/dl Albumin/Globulin Ratio 1.0 (0.9-2) Triglycerides (0-150) mg/dl Lipase 135 (73-393) U/L Urine Color Urine Appearance (Clear) Urine pH (4.5-7.5) Ur Specific [place] (1.000-1.030) Urine Protein (Negative) Urine Glucose (UA) (Negative) Urine Ketones (Negative) Urine Blood (Negative) Urine Nitrite (Negative) Urine Bilirubin (Negative) Urine Urobilinogen (Negative) Ur Leukocyte Esterase (Negative) Urine Opiates Screen (Neg) Ur Methadone, Qual (Neg) Urine Barbiturates (Neg) Ur Phencyclidine (PCP) (Neg) U Amphetamin/Meth Scrn (Neg) MDMA (Ecstasy) Screen (Neg) U Benzodiazepines Scrn (Neg) Ur Cocaine Metabolite (Neg) U Marijuana (THC) Screen (Neg) Ethyl Alcohol mg/dL (0-3) mg/dl 01/14/19 01/14/19 01/14/19 Range/Units 08:37 09:50 09:50 WBC (4.8-10.8) K/uL RBC (4.7-6.1) M/uL Hgb (14.0-18.0) g/dL Hct (42-52) % MCV (80-100) fL MCH (25-34) pg MCHC (32-36) g/dL RDW Std Deviation (36.4-46.3) fL RDW Coeff of Tiara (11.5-14.5) % Plt Count (130-400) K/uL MPV (7.4-10.4) fL Immature Gran % (Auto) % Neut % (Auto) % Lymph % (Auto) % [place] % (Auto) % Eos % (Auto) % Baso % (Auto) % Immature Gran # (Auto) (0.00-0.02) K/uL Neut # (Auto) (1.4-6.5) K/uL Lymph # (Auto) (1.2-3.4) K/uL Tama # (Auto) (0.11-0.59) K/uL Eos # (Auto) (0-0.5) K/uL Baso # (Auto) (0-0.2) K/uL PT (9.0-12.0) Seconds INR (0.9-1.1) APTT (21.0-31.0) Seconds PTT Ratio Sodium (136-145) mmol/L Potassium (3.5-5.1) mmol/L Chloride (98-107) mmol/L Carbon Dioxide (21-32) mmol/L Anion Gap (3-11) BUN (7-18) mg/dl Creatinine (0.6-1.4) mg/dl Est Cr Clr Drug Dosing ml/min Est GFR ( Amer) Est GFR (Non-Af Amer) BUN/Creatinine Ratio (10-20) Glucose (70-99) mg/dl Calcium (8.5-10.1) mg/dl Total Bilirubin (0.2-1) mg/dl AST (15-37) U/L ALT (12-78) U/L Alkaline Phosphatase (45-117) U/L Troponin I (0-0.045) ng/ml Total Protein (6.4-8.2) gm/dl Albumin (3.4-5.0) gm/dl Globulin (2.5-4.0) gm/dl Albumin/Globulin Ratio (0.9-2) Triglycerides 295 H (0-150) mg/dl Lipase (73-393) U/L Urine Color Yellow Urine Appearance Clear (Clear) Urine pH 8.0 H (4.5-7.5) Ur Specific [place] 1.005 (1.000-1.030) Urine Protein Negative (Negative) Urine Glucose (UA) Negative (Negative) Urine Ketones Negative (Negative) Urine Blood Negative (Negative) Urine Nitrite Negative (Negative) Urine Bilirubin Negative (Negative) Urine Urobilinogen Negative (Negative) Ur Leukocyte Esterase Negative (Negative) Urine Opiates Screen Pos H (Neg) Ur Methadone, Qual Neg (Neg) Urine Barbiturates Neg (Neg) Ur Phencyclidine (PCP) Neg (Neg) U Amphetamin/Meth Scrn Neg (Neg) MDMA (Ecstasy) Screen Neg (Neg) U Benzodiazepines Scrn Neg (Neg) Ur Cocaine Metabolite Neg (Neg) U Marijuana (THC) Screen Neg (Neg) Ethyl Alcohol mg/dL (0-3) mg/dl 01/14/19 Range/Units 11:33 WBC (4.8-10.8) K/uL RBC (4.7-6.1) M/uL Hgb (14.0-18.0) g/dL Hct (42-52) % MCV (80-100) fL MCH (25-34) pg MCHC (32-36) g/dL RDW Std Deviation (36.4-46.3) fL RDW Coeff of Tiara (11.5-14.5) % Plt Count (130-400) K/uL MPV (7.4-10.4) fL Immature Gran % (Auto) % Neut % (Auto) % Lymph % (Auto) % [place] % (Auto) % Eos % (Auto) % Baso % (Auto) % Immature Gran # (Auto) (0.00-0.02) K/uL Neut # (Auto) (1.4-6.5) K/uL Lymph # (Auto) (1.2-3.4) K/uL [place]ama # (Auto) (0.11-0.59) K/uL Eos # (Auto) (0-0.5) K/uL Baso # (Auto) (0-0.2) K/uL PT (9.0-12.0) Seconds INR (0.9-1.1) APTT (21.0-31.0) Seconds PTT Ratio Sodium (136-145) mmol/L Potassium (3.5-5.1) mmol/L Chloride (98-107) mmol/L Carbon Dioxide (21-32) mmol/L Anion Gap (3-11) BUN (7-18) mg/dl Creatinine (0.6-1.4) mg/dl Est Cr Clr Drug Dosing ml/min Est GFR ( Amer) Est GFR (Non-Af Amer) BUN/Creatinine Ratio (10-20) Glucose (70-99) mg/dl Calcium (8.5-10.1) mg/dl Total Bilirubin (0.2-1) mg/dl AST (15-37) U/L ALT (12-78) U/L Alkaline Phosphatase (45-117) U/L Troponin I (0-0.045) ng/ml Total Protein (6.4-8.2) gm/dl Albumin (3.4-5.0) gm/dl Globulin (2.5-4.0) gm/dl Albumin/Globulin Ratio (0.9-2) Triglycerides (0-150) mg/dl Lipase (73-393) U/L Urine Color Urine Appearance (Clear) Urine pH (4.5-7.5) Ur Specific [place] (1.000-1.030) Urine Protein (Negative) Urine Glucose (UA) (Negative) Urine Ketones (Negative) Urine Blood (Negative) Urine Nitrite (Negative) Urine Bilirubin (Negative) Urine Urobilinogen (Negative) Ur Leukocyte Esterase (Negative) Urine Opiates Screen (Neg) Ur Methadone, Qual (Neg) Urine Barbiturates (Neg) Ur Phencyclidine (PCP) (Neg) U Amphetamin/Meth Scrn (Neg) MDMA (Ecstasy) Screen (Neg) U Benzodiazepines Scrn (Neg) Ur Cocaine Metabolite (Neg) U Marijuana (THC) Screen (Neg) Ethyl Alcohol mg/dL < 3.0 (0-3) mg/dl Imaging Data Radiologist's Impression: XR chest 1V portable CLINICAL HISTORY: 58 years-old Male presenting with epigastric pain. TECHNIQUE: Portable upright AP view of the chest was obtained. COMPARISON: 04/04/2018. FINDINGS: Cardiac silhouette enlarged. Asymmetric radiolucency of the left lung in comparison to the right. No focal opacity. No large effusion or pneumothorax. Osseous structures normal. Upper abdomen normal. IMPRESSION: 1. Cardiomegaly. 2. Asymmetric radial lucency of the left lung relative to the right may be artifactual related to differing overlapping soft tissues. Diffuse right lung opacity is considered unlikely as is regional left lung oligemia. 3. No focal infiltrate. Electronically signed by: Ranjit Ayala M.D. 01/14/2019 8:52 AM US abdomen limited CLINICAL HISTORY: 58 years-old Male presenting with RUQ pain/tenderness. TECHNIQUE: Real-time grayscale and limited color Doppler ultrasound imaging of the abdomen limited to the right upper quadrant was performed. COMPARISON: CT from 04/03/2018. FINDINGS: Pancreas: Visualized portions of the pancreatic head and body normal. Liver: Moderately hyperechogenic parenchyma with partial obscuration of the right hemidiaphragm, likely indicating moderate steatosis. The liver measures 18.8 cm in maximal sagittal dimension. No sonographic evidence of hepatic mass. Main portal vein patent with normal directional flow. Biliary: No intrahepatic biliary ductal dilatation. Common bile duct measures up to 9-12 mm in diameter, likely a reservoir effect in the post cholecystectomy state. Gallbladder: Surgically absent. Right kidney: Normal in appearance without evidence of hydronephrosis. Ascites: None. Other: None. IMPRESSION: 1. Biliary ductal dilatation likely reservoir effect in the post cholecystectomy state. 2. Moderate hepatic steatosis. Correlate with liver function tests to exclude steatohepatitis as a cause for abdominal pain. Electronically signed by: Ranjit Ayala M.D. 01/14/2019 9:24 AM ECG Data Attestation: I personally reviewed and interpreted this ECG as follows: Indication: abdominal pain Rate (beats per minute): 84 Rhythm: normal sinus Findings: no T-wave inversion, no ST elevation, no acute ischemic change and no ectopy Comparison ECG Date: from (03/2018) Change: no significant change Blood Pressure Blood Pressure Findings: Elevated blood pressure Blood Pressure Disposition: further management by hospitalist BRADLEY Shaver This 58-year-old male patient presents emergency department today with right upper quadrant and epigastric tenderness, consistent with acute on chronic pancreatitis. The patient has had very in-depth work-up with gastroenterology. He was unresponsive to 2 doses of narcotic analgesics while here in the ED and blood pressure was significantly elevated. He was medicated with Lopressor while here in the department. Work-up here in the ED including chest x-ray and abdominal ultrasound did not show any evidence of acute pancreatitis or other significant abnormality noted on chest x-ray. Lipase was normal. Given the patient's multiple rounds of pain medication, hypertension, and history, I did recommend admission/observation for ongoing management and consultations. I discussed the case with the hospitalist who agreed to evaluate the patient for admission/observation. Please see the dictation regarding ongoing management care of this patient. The chart was completed utilizing [employer] Speech voice recognition software. Grammatical errors, random word insertions, pronoun errors, and incomplete sentences are an occasional consequence of this system due to software limitations, ambient noise, and hardware issues. Any formal questions or concerns about the content, text, or information contained within the body of this dictation should be directly addressed to the provider for clarification. Impression & Plan Pancreatitis, Abdominal pain, Hypertension Discharge Plan Visit Data Chief Complaint: Abdominal Pain Stated Complaint: RT SIDE AND BACK PAIN ED Provider: Daniel Bell ED Midlevel Provider: Divina Lizarraga Discharge Problem: Pancreatitis, Abdominal pain, Hypertension Patient Disposition: Admitted As Inpatient Condition: Good Discharge Instructions Interventions: ED Discharge Assessment Last Done: 01/14/19 12:34
[2019-01-14 08:53] LABS: Basophils # (auto) 0.05 K/uL (0-0.2); Basophils % (auto) 0.6 %; Eosinophils % (auto) 1.2 %; Hematocrit (blood only) 44.2 % (42-52); Immature Granulocytes # (auto) 0.03 K/uL (0.00-0.02); Immature Granulocytes % (auto) 0.4 %; Lymphocytes # (auto) 2.58 K/uL (1.2-3.4); Mean Corpuscular Hemoglobin 33.3 pg (25-34); Mean Corpuscular Hgb Conc 36.2 g/dL (32-36); Mean Corpuscular Volume 92.1 fL (80-100); Mean Platelet Volume 9.8 fL (7.4-10.4); Monocytes # (auto) 0.83 K/uL (0.11-0.59); Monocytes % (auto) 10.3 %; Neutrophils # (auto) 4.46 K/uL (1.4-6.5); Neutrophils % (auto) 55.5 %; Platelet Count 310 K/uL (130-400); RDW Coefficient of Variation 12.4 % (11.5-14.5); RDW Standard Deviation 41.7 fL (36.4-46.3); White Blood Count 8.05 K/uL (4.8-10.8)
--- NOTE | 2019-01-14 08:54 | XRay Report ---
XR chest 1V portable CLINICAL HISTORY: 58 years-old Male presenting with epigastric pain. TECHNIQUE: Portable upright AP view of the chest was obtained. COMPARISON: 04/04/2018. FINDINGS: Cardiac silhouette enlarged. Asymmetric radiolucency of the left lung in comparison to the right. No focal opacity. No large effusion or pneumothorax. Osseous structures normal. Upper abdomen normal. IMPRESSION: 1. Cardiomegaly. 2. Asymmetric radial lucency of the left lung relative to the right may be artifactual related to di ffering overlapping soft tissues. Diffuse right lung opacity is considered unlikely as is regional le ft lung oligemia. 3. No focal infiltrate. Electronically signed by: Ranjit Ayala M.D. 01/14/2019 8:52 AM
[2019-01-14 09:03] LABS: INR 1.1 (0.9-1.1); Partial Thromboplastin Time 26.5 Seconds (21.0-31.0); Prothrombin Time 10.9 Seconds (9.0-12.0)
[2019-01-14 09:08] LABS: Alanine Aminotransferase 84 U/L (12-78); Albumin Level 4.3 gm/dl (3.4-5.0); Aspartate Aminotransferase 57 U/L (15-37); BUN Creatinine Ratio 14.2 (10-20); Blood Urea Nitrogen 14 mg/dl (7-18); Calcium 9.4 mg/dl (8.5-10.1); Carbon Dioxide 24 mmol/L (21-32); Chloride 99 mmol/L (98-107); Creatinine Clr Calc Pharmacy 91.9 ml/min; Est GFR (African American) 95.3; Est GFR (Non-African American) 82.2; Glucose 100 mg/dl (70-99); Lipase 135 U/L (73-393); Potassium 3.7 mmol/L (3.5-5.1); Sodium 132 mmol/L (136-145)
[2019-01-14 09:13] LABS: Alkaline Phosphatase 80 U/L (45-117); Bilirubin,Total 0.5 mg/dl (0.2-1); Globulin 4.3 gm/dl (2.5-4.0); Total Protein 8.6 gm/dl (6.4-8.2); Troponin I < 0.015 ng/ml (0-0.045)
--- NOTE | 2019-01-14 09:26 | Ultrasound Report ---
US abdomen limited CLINICAL HISTORY: 58 years-old Male presenting with RUQ pain/tenderness. TECHNIQUE: Real-time grayscale and limited color Doppler ultrasound imaging of the abdomen limited to the right upper quadrant was performed. COMPARISON: CT from 04/03/2018. FINDINGS: Pancreas: Visualized portions of the pancreatic head and body normal. Liver: Moderately hyperechogenic parenchyma with partial obscuration of the right hemidiaphragm, like ly indicating moderate steatosis. The liver measures 18.8 cm in maximal sagittal dimension. No sonogr aphic evidence of hepatic mass. Main portal vein patent with normal directional flow. Biliary: No intrahepatic biliary ductal dilatation. Common bile duct measures up to 9-12 mm in diamet er, likely a reservoir effect in the post cholecystectomy state. Gallbladder: Surgically absent. Right kidney: Normal in appearance without evidence of hydronephrosis. Ascites: None. Other: None. IMPRESSION: 1. Biliary ductal dilatation likely reservoir effect in the post cholecystectomy state. 2. Moderate hepatic steatosis. Correlate with liver function tests to exclude steatohepatitis as a c ause for abdominal pain. Electronically signed by: Ranjit Ayala M.D. 01/14/2019 9:24 AM
[2019-01-14] MEDS ORDERED: METOPROLOL TARTRATE 1 MG/ML VIAL IV STA (09:57)
[2019-01-14] MEDS ORDERED: HYDROmorphone INJ 1 MG/ML SYRINGE IV STA ×2 (09:57→11:08)
[2019-01-14 10:04] LABS: Appearance Urine Clear (Clear); Bilirubin Urine Negative (Negative); Blood Urine Negative (Negative); Color Urine Yellow; Glucose Urine UA Negative (Negative); Ketones Urine Negative (Negative); Leukocyte Esterase Urine Negative (Negative); Nitrite Urine Negative (Negative); Protein Urine Negative (Negative); Specific Gravity Urine 1.005 (1.000-1.030); Urobilinogen Urine Negative (Negative)
[2019-01-14] MEDS ORDERED: ENALAPRILAT 1.25 MG in DEXTROSE 5% 25 ML IV STA (11:08)
--- NOTE | 2019-01-14 11:33 | CT Scan Report ---
HEAD CT NONCONTRAST CT DOSE: 537.48 mGy.cm HISTORY: Frontal headache. TECHNIQUE: Multiaxial CT images of the head were performed without the use of intravenous contrast. A utomated exposure control was utilized for this study. A dose lowering technique was utilized adheri ng to the principles of ALARA. Comparison: Head CT 10/18/2006. Findings: The paranasal sinuses and mastoid air cells are clear. The calvarium and skull base are int act. The ventricles and sulci are within normal limits. There is no mass, hematoma, midline shift, or acute infarct. Impression: No acute intracranial abnormality. Electronically signed by: Kam Baeza M.D. 01/14/2019 11:32 AM
--- NOTE | 2019-01-14 11:34 | History & Physical Report ---
Date of Service January 14, 2019 Assessment & Plan (1) Abdominal pain: (2) Chronic recurrent pancreatitis: Pt is 58 y/o M with PMH chronic pancreatitis, uncontrolled HTN, uncontrolled HLD hypertriglyceridemia, SHANIQUA, med noncompliance presented with complaint of abdominal pain x 4 days. Also reports vomiting and diarrhea today. Reported history of pancreas divisum, possible side branch IPMN on prior studies. In ER pt Afebrile. No leukocytosis, Lipase: 135, AST: 57 (near baseline from 06/2018), ALT: 84 (56 in 06/2018), Alk phos: 80 US ABD: Biliary ductal dilatation likely reservoir effect in the post cholecystectomy state. Moderate hepatic steatosis. CT ABD/PELVIS: No acute process within the abdomen or pelvis on unenhanced exam. Fatty liver. No urinary calculi or hydronephrosis. No CT evidence for acute pancreatitis. -NPO -LR at 50ml/hr since hypertensive -Morphine prn pain -Lipase, Liver functions, CMP, CBC in am -Stool studies, C-diff pending -Resume PPI -GI consult (3) Hypertensive urgency: Pt with hx uncontrolled HTN and medicine noncompliance. Follows with Dr Pacheco. Has not been taking his Losartan regularly, Has not been taking amlodipine, carvedilol Denies current NIEVES, CP, SOB. Is Alert and oriented BP's elevated in ER 191/126 CT HEAD: No acute intracranial abnormality. EKG: no acute ST changes -In ER received Lopressor 5mg IV -Additional enalaprilat 1.25mg IV given with BP down to 162/107 -Enalaprilat 1.25mg Q6H -Hydralazine 10mg IV Q6h PRN SBP>180, DBP>100 -Resume amlodipine, carvedilol -Plan to resume losartan tomorrow (4) Dyslipidemia: (5) Hypertriglyceridemia: Has not been taking Crestor -Lipid panel in am -Resume Crestor (6) SHANIQUA (obstructive sleep apnea): Intolerant to CPAP -oxygen via [facility] DVT Prophylaxis -SCDs Follows with Dr Cummings for routine care Pt was seen and care coordinated with Dr Alexander. See addendum History of Present Illness Chief Complaint: Abdominal pain Primary Care Provider: Manish Cummings MD Pt is 58 y/o M with PMH chronic pancreatitis, uncontrolled HTN, uncontrolled HLD hypertriglyceridemia, SHANIQUA, med noncompliance presented to ER with complaint of abdominal pain x4 days. Patient with history of chronic pancreatitis and follows with GI. Reported history of pancreas divisum, possible side branch IPMN. Patient reports recurrent episodes of abdominal pain that he typically can manage at home with Percocet. States last episode was last month. Reports 4 days ago started with right upper quadrant and epigastric pain that radiates to back described as constant dull aching. Reports made worse last night after eating meatballs and noodles. Also worse this am after eating toast with butter. Ports a couple episodes of vomiting today. States couple episodes of diarrhea since yesterday. Several days ago tried taking pancreaze. Patient with history of diet and medicine noncompliance. Patient vague if he is taking his losartan daily but reports took a dose yesterday. He admits to not taking amlodipine, carvedilol, pantoprazole, rosuvastatin as prescribed. States last night with some frontal head pressure but denies any NIEVES today. Denies fever/chills, diaphoresis, hematemesis, hematochezia, melena, dizziness, syncope, vision changes, neck pain, CP, SOB, orthopnea, palpitations, cough, sore throat, choking, otalgia, rhinorrhea, paresthesias, weakness, extremity weakness, extremity edema, rashes, urinary symptoms. Allergies Allergy/AdvReac Type Severity Reaction Status Date / Time lisinopril AdvReac Intermediate Cough Verified 01/14/19 08:51 Home Medications Home Medications Medication Instructions Recorded Confirmed Type amlodipine 10 mg PO DAILY 01/14/19 01/14/19 History aspirin 81 mg PO DAILY 01/14/19 01/14/19 History carvedilol 25 mg PO BID 01/14/19 01/14/19 History [id number] [Pancreaze] 2 cap PO TID 01/14/19 01/14/19 History losartan 100 mg PO DAILY 01/14/19 01/14/19 History pantoprazole 20 mg PO DAILY 01/14/19 01/14/19 History rosuvastatin 20 mg PO DAILY 01/14/19 01/14/19 History Past Med/Surg History Medical History SHANIQUA (obstructive sleep apnea) (Chronic) History of gastroesophageal reflux (GERD) (Chronic) Pancreatitis (Chronic) Hypertension (Chronic) Dyslipidemia (Chronic) Hypertriglyceridemia (Chronic) Chronic recurrent pancreatitis (Chronic) Hypertensive urgency (Resolved) Surgical History S/P tonsillectomy and adenoidectomy (Chronic) S/P appendectomy (Chronic) H/O inguinal hernia repair (Chronic) History of dental surgery (Chronic) H/O colonoscopy (Chronic) H/O laparoscopy (Chronic) H/O esophagogastroduodenoscopy (Chronic) Social History Preferred Language: Divehi Communication Ability: Effective [employer] Required: No Beliefs That Will Affect Care: None Current Living Situation: Spouse Other Information That Helps Us Care for You: No Feels Safe at Home: No Is there a partner from a previous relationship who is making you feel unsafe now?: No Any Concerns about Your Family Situation: No Would You Like to Speak to Someone About Your Situation: No Safety Concerns: Feels Safe At This Time Smoking Status: Never smoker Second Hand Exposure: No ; Hx Alcohol Use: No Hx Substance Use: No Review of Systems Review of Systems: All systems reviewed & are unremarkable except as noted in HPI & below Physical Exam Physical Exam: General: mild distress secondary to abdominal pain, obese Head: normocephalic, atraumatic Eyes: PERRL, EOM's intact, conjunctiva non-injected, anicteric ENT: normal inspection external ears, nose, mucous membranes moist Neck: supple, trachea midline Lungs: clear, no respiratory distress, no wheezing/rhonchi/rales CV: RRR, no murmur, no pretibial edema Abd: normal BS, soft, voluntary guarding, +tenderness to palpation epigastric, RUQ Ext: no cyanosis, no calf tenderness Neuro: A&O x 3, no focal deficits noted, anxious affect Skin: warm, dry Results & Data Vital Signs (Past 12 Hours) Vital Signs Temp Pulse Pulse Resp BP BP Pulse Ox 01/14/19 10:27 85 16 191/120 H 97 01/14/19 10:08 84 24 188/111 H 96 01/14/19 10:06 91 H 24 194/115 H 96 01/14/19 09:56 99 H 20 203/137 H 99 01/14/19 09:30 85 18 184/104 H 99 01/14/19 08:30 97 01/14/19 08:12 36.7 C 123 H 20 191/126 H 97 Laboratory Results Short CBC 01/14/19 Range/Units 08:37 WBC 8.05 (4.8-10.8) K/uL Hgb 16.0 (14.0-18.0) g/dL Hct 44.2 (42-52) % Plt Count 310 (130-400) K/uL BMP 01/14/19 08:37 Sodium 132 L Potassium 3.7 Chloride 99 Carbon Dioxide 24 BUN 14 Creatinine 1.01 Glucose 100 H Calcium 9.4 Cardiac Enzymes 01/14/19 Range/Units 08:37 Troponin I < 0.015 (0-0.045) ng/ml Liver Function 01/14/19 Range/Units 08:37 Total Bilirubin 0.5 (0.2-1) mg/dl AST 57 H (15-37) U/L ALT 84 H (12-78) U/L Alkaline Phosphatase 80 (45-117) U/L Albumin 4.3 (3.4-5.0) gm/dl Urine 01/14/19 Range/Units 09:50 Urine Color Yellow Urine Appearance Clear (Clear) Urine pH 8.0 H (4.5-7.5) Ur Specific [place] 1.005 (1.000-1.030) Urine Protein Negative (Negative) Urine Glucose (UA) Negative (Negative) Diagnostic Findings CT HEAD: Impression: No acute intracranial abnormality. US ABD: IMPRESSION: 1. Biliary ductal dilatation likely reservoir effect in the post cholecystectomy state. 2. Moderate hepatic steatosis. Correlate with liver function tests to exclude steatohepatitis as a cause for abdominal pain. CXR: IMPRESSION: 1. Cardiomegaly. 2. Asymmetric radial lucency of the left lung relative to the right may be artifactual related to differing overlapping soft tissues. Diffuse right lung opacity is considered unlikely as is regional left lung oligemia. 3. No focal infiltrate. CT ABD/PELVIS: IMPRESSION: 1. No acute process within the abdomen or pelvis on unenhanced exam. 2. Fatty liver. 3. No urinary calculi or hydronephrosis. 4. No CT evidence for acute pancreatitis. ECG Rate (beats per minute): 84 Rhythm: normal sinus Additional Comments: incomplete RBBB. Hx on prior EKGs Supervising Physician Co-Signing Physician Notes Patient is a 58-year-old male with history of chronic pancreatitis, hypertension, dyslipidemia, SHANIQUA, pancreatic divisum and other problems presents with history of worsening epigastric, right upper quadrant abdominal pain since 4 days duration which radiates to the back. Reports associated nausea vomiting today. Admits to being noncompliant with taking medications. CT head, abdomen showed no acute findings. Mild transaminitis noted on labs. Diffuse right lung opacity noted on chest x-ray but denies any respiratory symptoms. On exam patient is moderately built and nourished, mild distress, normocephalic atraumatic, lungs are clear to auscultation, normal breath sounds, S1-S2, no murmur, no pedal edema, abdomen-+ epigastric, RUQ tender, + voluntary guarding, grossly nonfocal neurological deficits. Patient is admitted for management of hypertensive urgency, abdominal pain--likely due to pancreatic divisum, hepatic steatosis. Plan to keep him n.p.o., start on IV fluids, pain control, stool studies, PPI, consulted GI. Resume Crestor. Counseled on dietary changes and medication compliance. Will control blood pressure with Vasotec, hydralazine PRN. Also will resume home amlodipine, carvedilol. May need repeat CT chest as outpatient to evaluate for right lung opacity. I personally reviewed the record. Patient is interviewed and examined at bedside. Patient's care is coordinated with Jenny Godinez. Please refer to the documentation above for details of patient's presentation and for discussion of other issues.
[2019-01-14 12:08] LABS: Amphetamines+Metham, Urine Neg (Neg); Barbiturates, Urine Neg (Neg); Benzodiazepine, Urine Neg (Neg); Cocaine, Urine Neg (Neg); MDMA (Ecstacy), Urine Neg (Neg); Methadone, Urine Neg (Neg); Opiate, Urine Pos (Neg); Phencyclidine, Urine Neg (Neg)
--- NOTE | 2019-01-14 12:25 | CT Scan Report ---
CT OF THE ABDOMEN AND PELVIS WITHOUT CONTRAST CLINICAL HISTORY: Abdominal pain. COMPARISON STUDY: CT of the abdomen and pelvis April 03, 2018. MRCP April 05, 2018. Right uppe r quadrant ultrasound performed earlier today. TECHNIQUE: Axial images of the abdomen and pelvis were obtained without IV contrast. Images were revi ewed in the axial, sagittal, and coronal planes. Automated exposure control was utilized for the aquiles dy. A dose lowering technique was utilized adhering to the principles of ALARA. FINDINGS: A small left lower lobe nodule is unchanged from earlier exams. This is benign given stabil ity. There is fatty infiltration of the liver. Slight dilatation of the common bile duct is unchanged and likely related to previous cholecystectomy. There is no pancreatic ductal dilatation. There is n o peripancreatic lesion. The T2 hyperintense uncinate process lesion within the pancreas is better de picted on prior contrast enhanced CT. No renal, ureteral or bladder calculi are present. There is no hydronephrosis or hydroureter. There is no evidence for a bowel obstruction. Colonic diverticulosis i s noted without evidence for acute diverticulitis. IMPRESSION: 1. No acute process within the abdomen or pelvis on unenhanced exam. 2. Fatty liver. 3. No urinary calculi or hydronephrosis. 4. No CT evidence for acute pancreatitis. Electronically signed by: Ehsan Colin M.D. 01/14/2019 12:23 PM
[2019-01-14] MEDS ORDERED: ONDANSETRON INJ 2 MG/ML 2 ML VIAL IV PRN (12:51)
[2019-01-14] MEDS ORDERED: HydrALAZINE HCL 20 MG/ML VIAL IV PRN (12:51)
[2019-01-14] MEDS: LACTATED RINGER'S 1,000 ML IV SCH (13:11)
[2019-01-14] MEDS: ENALAPRILAT 1.25 MG in DEXTROSE 5% 25 ML IV SCH ×2 (13:26→20:47)
--- NOTE | 2019-01-14 13:55 | Gastrointestinal Consultation ---
Date of Consultation January 14, 2019 Assessment & Plan (1) Abdominal pain: Mr. Horacio Morocho is a 58 yr old male with a hx of HTN, hyperlipidemia, hypertriglyceridemia who presents with severe abdominal pain. No clear evidence of pancreatitis today (normal lipase level and non contrast CT without pancreatic abnormalities). However, higher level (OP) imaging with changes of chronic pancreatitis and pancreatic divisum, and pt reports pain is typical of acute on chronic pancreatitis. 1. LR at 200/hr. 2. Water/ice po only for now. 3. Would cautiously treat with narcotics. 4. Continue OP f/u for chronic pancreatitis with Dr. Saez at which time, further imaging could be considered. Attg add: I interviewed and examined pt, reviewed chart and labs. Pt with chronic panc/recurrent acute panc (related to trigs? divisum?) with chronic pain now with abd pain typical of pancreatitis x 2 weeks. Lipase WNL on admission, CT non con unremarkable. On exam, he appears well, with mild abd tenderness. Agree with recs as above - check trigs, analgesia as indicated, fluids, diet as tolerated. Please consider pain management consult for assistance with management of analgesia. Please call with questions. Present on Admission?: Yes History of Present Illness Reason for Consultation: Recurrent Pancreatitis Requesting Physician: Jenny Alexis PA-C Attending Physician: Cole Alexander MD History of Present Illness Mr. Horacio Morocho is a 58 yr old male pt of Dr. Cummings with a hx of chronic pancreatitis, HTN, hyperlipidemia, hypertriglyceridemia, SHANIQUA. He presented to the ED today for abdominal pain. GI is consulted for recurrent pancreatitis. The pt began with upper abdomen pain on Friday, placed himself on a clear liquid diet, and took Percocet. He felt a bit better so ate dinner last night but experienced severe post prandial upper abdomen pain, nausea, vomiting (about 4 episodes) and diarrhea (also about 4 episodes) and presented to the ED this morning. On arrival, Lipase 135, CT w/o evidence of pancreatitis but done w/o IV contrast. Regarding hx of pancreatitis, from OP records and pt interview today: No clear etiology of pancreatitis. Denies any hx of increased alcohol intake or smoking hx. Initial episode in 2006, underwent cholecystectomy in 2014. CT 02/2016 with stranding around the pancreatic head, MRCP with side branch IPMN. EUS in 03/2016: chronic pancreatitis with multiple cysts. IgG4 was normal. GES was normal. MRI in 11/2017 and EUS in 02/2018 with chronic pancreatitis with possible side branch IPMN and pancreas divisum. He has has 4-6 episodes of pain per month that are generally controlled with Percocet. Allergies Allergy/AdvReac Type Severity Reaction Status Date / Time lisinopril AdvReac Intermediate Cough Verified 01/14/19 08:51 Home Medications Home Medications Medication Instructions Recorded Confirmed Type amlodipine 10 mg PO DAILY 01/14/19 01/14/19 History aspirin 81 mg PO DAILY 01/14/19 01/14/19 History carvedilol 25 mg PO BID 01/14/19 01/14/19 History dicvwq-dlaurtig-omnofea [Pancreaze] 2 cap PO TID 01/14/19 01/14/19 History losartan 100 mg PO DAILY 01/14/19 01/14/19 History pantoprazole 20 mg PO DAILY 01/14/19 01/14/19 History rosuvastatin 20 mg PO DAILY 01/14/19 01/14/19 History Patient History Medical History SHANIQUA (obstructive sleep apnea) (Chronic) History of gastroesophageal reflux (GERD) (Chronic) Pancreatitis (Chronic) Hypertension (Chronic) Dyslipidemia (Chronic) Hypertriglyceridemia (Chronic) Chronic recurrent pancreatitis (Chronic) Hypertensive urgency (Resolved) Surgical History S/P tonsillectomy and adenoidectomy (Chronic) S/P appendectomy (Chronic) H/O inguinal hernia repair (Chronic) History of dental surgery (Chronic) H/O colonoscopy (Chronic) H/O laparoscopy (Chronic) H/O esophagogastroduodenoscopy (Chronic) Social History Preferred Language: Spanish Communication Ability: Effective 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: No Beliefs That Will Affect Care: None Current Living Situation: Spouse Other Information That Helps Us Care for You: No Feels Safe at Home: No Is there a partner from a previous relationship who is making you feel unsafe now?: No Any Concerns about Your Family Situation: No Would You Like to Speak to Someone About Your Situation: No Safety Concerns: Feels Safe At This Time Smoking Status: Never smoker Second Hand Exposure: No ; Hx Alcohol Use: No Hx Substance Use: No Review of Systems Review of Systems: ROS: Gen: Denies weakness, fevers, weight loss Eyes: No eye redness, or pain, no recent vision changes Resp: No SOB, no cough Cardio: No palpitations/irregular beats, no chest pain GI: + severe upper abdomen pain, no nausea/vomiting : Denies pain on urination Skin: No jaundice, itching or new rashes Physical Exam Constitutional: WD/WN, vitals as above + obese Anxious affect. No tremors Eyes: PERRL, conjunctivae normal, anicteric sclerae ENMT: external ear and nose normal, oropharynx normal Neck: trachea midline, no thyromegaly Respiratory: normal respiratory effort, lungs clear to auscultation Cardiovascular: RRR, no murmur, no edema Gastrointestinal (Abdomen): Inspection/Auscultation: abdomen normal to inspection and + hypoactive bowel sounds; abdomen not distended Percussion/Palpation: + abdomen tender (very tender in the entire upper abdomen) and abdomen soft Skin: no rashes, warm and dry no jaundice Neurologic: PERRL, EOMI, accommodation nl, no face palsy, no dysarthria Psychiatric: Orientation: oriented x 3 Affect: + anxious affect Lymphatic: no cervical or axillary lymphadenopathy Results & Data Vital Signs (Past 12 Hours) Vital Signs Temp Pulse Pulse Resp BP BP Pulse Ox 01/14/19 12:57 36.5 C 84 20 163/108 H 96 01/14/19 12:30 85 18 99 01/14/19 12:16 92 H 22 185/102 H 95 01/14/19 11:52 92 H 22 162/107 H 96 01/14/19 11:42 96 H 20 190/115 H 97 01/14/19 10:27 85 16 191/120 H 97 01/14/19 10:08 84 24 188/111 H 96 01/14/19 10:06 91 H 24 194/115 H 96 01/14/19 09:56 99 H 20 203/137 H 99 01/14/19 09:30 85 18 184/104 H 99 01/14/19 08:30 97 01/14/19 08:12 36.7 C 123 H 20 191/126 H 97 Laboratory Results WBC 8, Hb 16, Hct 44, Platelets 310, INR 1.1. Na 132, K 3.7, BUN 14 Ct 1.01. AST 57, ALT 84, Alk Phos 80, Trop non elevated. Diagnostic Findings Non contrast CT abd/pelvis 01/14: 1. No acute process within the abdomen or pelvis on unenhanced exam. 2. Fatty liver. 3. No urinary calculi or hydronephrosis. 4. No CT evidence for acute pancreatitis US 01/14/19: Biliary ductal dilatation likely reservoir effect in the post cholecystectomy state. 2. Moderate hepatic steatosis. Correlate with liver function tests to exclude steatohepatitis as a cause for abdominal pain.
[2019-01-14] MEDS: AMLODIPINE BESYLATE 5 MG TAB PO SCH (13:58)
[2019-01-14] MEDS: MoRPHine SULFATE 4 MG/ML 1 ML CARP\\VIAL IV PRN ×2 (13:59→19:50)
[2019-01-14] MEDS ORDERED: INFLUENZA ADMINISTRATION CHARGE ONE (14:15)
[2019-01-14] MEDS ORDERED: PNEUMOCOCCAL ADMINISTRATION CHARGE ONE (14:15)
[2019-01-14] MEDS ORDERED: INFLUENZA VIRUS QUAD VACCINE 0.5 ML SYR IM ONE (14:15)
[2019-01-14] MEDS ORDERED: PNEUMOCOCCAL POLYSACCHARIDES 25 MCG/0.5 ML VIAL/SYR IM ONE (14:15)
[2019-01-14] MEDS ORDERED: ZOLPIDEM TARTRATE 5 MG TAB PO PRN (20:10)
[2019-01-14] MEDS: carvediloL 25 MG TAB PO SCH (20:48)
[2019-01-14] MEDS: HEPARIN SOD 5,000 UNIT/0.5 ML VIAL SQ SCH (20:51)
[2019-01-15] MEDS: LACTATED RINGER'S 1,000 ML IV SCH ×3 (00:26→10:41)
[2019-01-15] MEDS: ENALAPRILAT 1.25 MG in DEXTROSE 5% 25 ML IV SCH ×2 (03:54→09:58)
[2019-01-15] MEDS: MoRPHine SULFATE 4 MG/ML 1 ML CARP\\VIAL IV PRN ×3 (03:57→12:09)
[2019-01-15 07:36] LABS: Hematocrit (blood only) 40.6 % (42-52); Hemoglobin 13.9 g/dL (14.0-18.0); Mean Corpuscular Hemoglobin 32.1 pg (25-34); Mean Corpuscular Hgb Conc 34.2 g/dL (32-36); Mean Corpuscular Volume 93.8 fL (80-100); Platelet Count 249 K/uL (130-400); RDW Coefficient of Variation 12.4 % (11.5-14.5); RDW Standard Deviation 42.2 fL (36.4-46.3); Red Blood Count 4.33 M/uL (4.7-6.1); White Blood Count 4.47 K/uL (4.8-10.8)
[2019-01-15] MEDS: AMLODIPINE BESYLATE 5 MG TAB PO SCH (07:51)
[2019-01-15] MEDS: carvediloL 25 MG TAB PO SCH (07:51)
[2019-01-15] MEDS: HEPARIN SOD 5,000 UNIT/0.5 ML VIAL SQ SCH (07:52)
[2019-01-15 08:11] LABS: Albumin Level 3.5 gm/dl (3.4-5.0); Calcium 8.8 mg/dl (8.5-10.1); Creatinine Clr Calc Pharmacy 103.4 ml/min; Est GFR (Non-African American) 94.9
[2019-01-15 08:19] LABS: Bilirubin Direct 0.3 mg/dl (0-0.2); Bilirubin,Total 1.1 mg/dl (0.2-1); Globulin 3.4 gm/dl (2.5-4.0); Total Protein 6.9 gm/dl (6.4-8.2)
[2019-01-15] MEDS ORDERED: LOSARTAN POTASSIUM 50 MG TAB PO SCH (09:00)
[2019-01-15] MEDS ORDERED: ROSUVASTATIN CALCIUM 20 MG TAB PO SCH (09:00)
[2019-01-15] MEDS ORDERED: PANTOprazole 40 MG TAB PO SCH (09:00)
--- NOTE | 2019-01-15 11:47 | Gastroenterology Progress Note ---
Date of Service January 15, 2019 Assessment & Plan (1) Abdominal pain: Mr. Horacio Morocho is a 58 yr old male with a hx of HTN, hyperlipidemia, hypertriglyceridemia who presents with severe abdominal pain, likely related to chronic panc. 1. Decrease LR to 100/hr. 2. Full liquid diet. 3. Would cautiously treat with narcotics; consider pain management consult. Attg add: I interviewed and examined pt, reviewed chart and labs. Pt reports less pain today, increased appetite. On exam, he looks well; his abd is non tender to my exam. Labs show appropriate hgb fall, trigs of around 300 yesterday and stable LFTs. A/P: Chronic panc, most likely related to hyper TG - His trigs were 300 yesterday; this may be falsely low as it was measured after a period of fasting/illness. He looks improved today - cont to adv diet to low fat; hopefully he can be d/c'd today if he is tolerating PO. He should resume anti-lipemic therapy specifically to address hyper TG -- will defer management of this issue to primary service, but would addition of fibrate/fish oil or endocrine consult to help address. Need for weight loss/etoh abstinence reviewed with pt. Abnl LFT's - likely NAFLD, rec outpt f/u per PCP. Will sign off, but please reconsult if needed. Pt does not need scheduled GI fu. Subjective Mr. Horacio Morocho is a 58 yr old male admitted on 01/13 with recurrent pancreatitis: idiopathic vs. from hypertriglyceridemia. Feels better today, though still with level 5-7 pain. No nausea, vomiting. Hb 16->13.9, Cr 4. T Bili 1.1, D bili 0.3, AST 67, ALT 87, Lipase 96, triglycerides 155. Review of Systems Review of Systems: ROS: Gen: Denies weakness, fevers, weight loss Eyes: No eye redness, or pain, no recent vision changes Resp: No SOB, no cough Cardio: No palpitations/irregular beats, no chest pain GI: +upper abdomen pain, no nausea/vomiting : Denies pain on urination Skin: No jaundice, itching or new rashes Physical Exam Constitutional: WD/WN, vitals as above + obese Eyes: PERRL, conjunctivae normal, anicteric sclerae ENMT: external ear and nose normal, oropharynx normal Neck: trachea midline, no thyromegaly Respiratory: normal respiratory effort, lungs clear to auscultation Cardiovascular: RRR, no murmur, no edema Gastrointestinal (Abdomen): Inspection/Auscultation: abdomen normal to inspection and + hypoactive bowel sounds; abdomen not distended Percussion/Palpation: + abdomen tender (very tender in the entire upper abdomen) and abdomen soft Skin: no rashes, warm and dry no jaundice Neurologic: PERRL, EOMI, accommodation nl, no face palsy, no dysarthria Psychiatric: Orientation: oriented x 3 Affect: + anxious affect Lymphatic: no cervical or axillary lymphadenopathy Results & Data Vital Signs (Past 12 Hours) Vital Signs Temp Pulse Pulse Pulse Resp BP BP 01/15/19 11:08 36.4 C L 63 19 142/82 H 01/15/19 08:40 130/77 01/15/19 07:35 36.7 C 66 19 168/85 H 01/15/19 03:51 36.5 C 67 19 144/79 H 01/15/19 01:52 63 Pulse Ox 01/15/19 11:08 98 01/15/19 08:40 01/15/19 07:35 98 01/15/19 03:51 98 01/15/19 01:52
[2019-01-15 15:08] VITALS: BP 146/83; TEMP 97.3; O2SAT 95
--- NOTE | 2019-01-15 15:14 | Hospitalist Progress Note ---
Date of Service January 15, 2019 Assessment & Plan (1) Abdominal pain: Secondary to recurrent pancreatitis Management as below (2) Chronic recurrent pancreatitis: Pt is 58 y/o M with PMH chronic pancreatitis, uncontrolled HTN, uncontrolled HLD hypertriglyceridemia, SHANIQUA, med noncompliance presented with complaint of abdominal pain x 4 days. Also reports vomiting and diarrhea today. Reported history of pancreas divisum, possible side branch IPMN on prior studies. In ER pt Afebrile. No leukocytosis, Lipase: 135, AST: 57 (near baseline from 06/2018), ALT: 84 (56 in 06/2018), Alk phos: 80 US ABD: Biliary ductal dilatation likely reservoir effect in the post cholecystectomy state. Moderate hepatic steatosis. CT ABD/PELVIS: No acute process within the abdomen or pelvis on unenhanced exam. Fatty liver. No urinary calculi or hydronephrosis. No CT evidence for acute pancreatitis. Has been feeling better since admission Abdominal pain seems to be improving He has been tolerating clears Diet was advanced and well-tolerated Wants to go home He was warned against possible recurrence of pain (3) Hypertensive urgency: Pt with hx uncontrolled HTN and medicine noncompliance. Follows with Dr Pacheco. Has not been taking his Losartan regularly, Has not been taking amlodipine, carvedilol Denies current NIEVES, CP, SOB. Is Alert and oriented BP's elevated in ER 191/126 CT HEAD: No acute intracranial abnormality. EKG: no acute ST changes -In ER received Lopressor 5mg IV -Additional enalaprilat 1.25mg IV given with BP down to 162/107 -Enalaprilat 1.25mg Q6H -Hydralazine 10mg IV Q6h PRN SBP>180, DBP>100 -Resume amlodipine, carvedilol -Blood pressure remains stable -We will discharge home this afternoon he wants to go home (4) Dyslipidemia: (5) Hypertriglyceridemia: Has not been taking Crestor -Lipid panel in am -Resume Crestor (6) SHANIQUA (obstructive sleep apnea): Intolerant to CPAP -oxygen via NC HS DVT Prophylaxis -SCDs Follows with Dr Cummings for routine care He wants to go home Subjective 01/15 The patient was seen and examined in telemetry unit He complains of abdominal pain that goes to the back better since admission Has been tolerating clears orally Denies any chest pain and/or palpitation, no shortness of breath Review of Systems Review of Systems: All systems reviewed and are unremarkable except as noted below Gastrointestinal: + abdominal pain and + bloating; no nausea and no vomiting Musculoskeletal: No acute arthritis involving any joint Physical Exam Physical Exam: Lying in bed with some discomfort secondary to renal pain Constitutional: well developed, well nourished, + acute distress, + ill appearing and + obese Eyes: PERRL, conjunctivae normal, anicteric sclerae ENMT: external ear and nose normal, oropharynx normal Neck: trachea midline, no thyromegaly Respiratory: normal respiratory effort; no respiratory distress Auscultation: lungs clear to auscultation bilaterally Cardiovascular: Rate/Rhythm: regular rate and regular rhythm Heart Sounds: no murmur Gastrointestinal (Abdomen): Inspection/Auscultation: abdomen normal to inspection and normal bowel sounds Percussion/Palpation: + abdomen tender Neurologic: moves all extremities; no focal motor deficits Results & Data Vital Signs (Past 12 Hours) Vital Signs Temp Pulse Pulse Resp BP BP Pulse Ox 01/15/19 11:08 36.4 C L 63 19 142/82 H 98 01/15/19 08:40 130/77 01/15/19 07:35 36.7 C 66 19 168/85 H 98 01/15/19 03:51 36.5 C 67 19 144/79 H 98 Laboratory Results Short CBC 01/15/19 Range/Units 07:09 WBC 4.47 L (4.8-10.8) K/uL Hgb 13.9 L (14.0-18.0) g/dL Hct 40.6 L (42-52) % Plt Count 249 (130-400) K/uL BMP 01/15/19 07:09 Sodium 138 Potassium 4.0 Chloride 105 Carbon Dioxide 28 BUN 11 Creatinine 0.89 Glucose 95 Calcium 8.8 Liver Function 01/15/19 Range/Units 07:09 Total Bilirubin 1.1 H D (0.2-1) mg/dl Direct Bilirubin 0.3 H (0-0.2) mg/dl AST 67 H (15-37) U/L ALT 87 H (12-78) U/L Alkaline Phosphatase 82 (45-117) U/L Albumin 3.5 (3.4-5.0) gm/dl Medications Administered Current Inpatient Medications Amlodipine Besylate (Norvasc) 10 mg PO DAILY KODAK Stop: 02/13/19 12:50 Last Admin: 01/15/19 07:51 Dose: 10 mg Documented by: Carvedilol (Coreg) 25 mg PO BID KODAK Stop: 02/13/19 20:59 Last Admin: 01/15/19 07:51 Dose: 25 mg Documented by: Heparin Sodium (Porcine) (Heparin Sodium (Porcine)) 5,000 units SQ Q12 KODAK Stop: 02/13/19 20:59 Last Admin: 01/15/19 07:52 Dose: Not Given Documented by: Hydralazine HCl (Hydralazine Hcl) 10 mg IV Q6H PRN PRN Reason: Hypertension Stop: 02/13/19 12:50 Lactated Ringer's (Lr) 1,000 mls @ 100 mls/hr IV .Q10H KODAK Stop: 02/13/19 13:14 Last Infusion: 01/15/19 12:06 Dose: 125 mls/hr Documented by: Losartan Potassium (Cozaar) 100 mg PO DAILY KODAK Stop: 02/14/19 08:59 Last Admin: 01/15/19 07:50 Dose: 100 mg Documented by: Morphine Sulfate (Morphine Sulfate) 4 mg IV Q3H PRN PRN Reason: Pain Stop: 01/28/19 12:50 Last Admin: 01/15/19 12:09 Dose: 4 mg Documented by: Ondansetron HCl (Zofran) 4 mg IV Q6H PRN PRN Reason: Nausea Stop: 02/13/19 12:50 Pantoprazole Sodium (Protonix) 40 mg PO DAILY KODAK Stop: 02/14/19 08:59 Last Admin: 01/15/19 07:51 Dose: 40 mg Documented by: Rosuvastatin Calcium (Crestor) 20 mg PO DAILY KODAK Stop: 02/14/19 08:59 Last Admin: 01/15/19 07:50 Dose: 20 mg Documented by: Zolpidem Tartrate (Ambien) 5 mg PO HS PRN PRN Reason: Sleep Stop: 02/13/19 20:09 Last Admin: 01/14/19 23:28 Dose: 5 mg Documented by:
[2019-01-15 15:40] VITALS: PULSE 63
--- NOTE | 2019-01-15 17:33 | Discharge Summary ---
Date of Service January 15, 2019 Admission HPI Per Admitting Provider Pt is 58 y/o M with PMH chronic pancreatitis, uncontrolled HTN, uncontrolled HLD hypertriglyceridemia, SHANIQUA, med noncompliance presented to ER with complaint of abdominal pain x4 days. Patient with history of chronic pancreatitis and follows with GI. Reported history of pancreas divisum, possible side branch IPMN. Patient reports recurrent episodes of abdominal pain that he typically can manage at home with Percocet. States last episode was last month. Reports 4 days ago started with right upper quadrant and epigastric pain that radiates to back described as constant dull aching. Reports made worse last night after eating meatballs and noodles. Also worse this am after eating toast with butter. Ports a couple episodes of vomiting today. States couple episodes of diarrhea since yesterday. Several days ago tried taking pancreaze. Patient with history of diet and medicine noncompliance. Patient vague if he is taking his losartan daily but reports took a dose yesterday. He admits to not taking amlodipine, carvedilol, pantoprazole, rosuvastatin as prescribed. States last night with some frontal head pressure but denies any NIEVES today. Denies fever/chills, diaphoresis, hematemesis, hematochezia, melena, dizziness, syncope, vision changes, neck pain, CP, SOB, orthopnea, palpitations, cough, sore throat, choking, otalgia, rhinorrhea, paresthesias, weakness, extremity weakness, extremity edema, rashes, urinary symptoms. Admission Exam Per Admitting Provider Physical Exam: General: mild distress secondary to abdominal pain, obese Head: normocephalic, atraumatic Eyes: PERRL, EOM's intact, conjunctiva non-injected, anicteric ENT: normal inspection external ears, nose, mucous membranes moist Neck: supple, trachea midline Lungs: clear, no respiratory distress, no wheezing/rhonchi/rales CV: RRR, no murmur, no pretibial edema Abd: normal BS, soft, voluntary guarding, +tenderness to palpation epigastric, RUQ Ext: no cyanosis, no calf tenderness Neuro: A&O x 3, no focal deficits noted, anxious affect Skin: warm, dry Principal Diagnosis Acute recurrent pancreatitis, hypertensive urgency Discharge Exam Constitutional well developed, well nourished, + acute distress, + ill appearing and + obese Eyes PERRL, conjunctivae normal, anicteric sclerae ENMT external ear and nose normal, oropharynx normal Neck trachea midline, no thyromegaly Respiratory normal respiratory effort; no respiratory distress Auscultation: lungs clear to auscultation bilaterally Cardiovascular Rate/Rhythm: regular rate and regular rhythm Heart Sounds: no murmur Gastrointestinal (Abdomen) Inspection/Auscultation: abdomen normal to inspection and normal bowel sounds Percussion/Palpation: + abdomen tender Neurologic moves all extremities; no focal motor deficits Discharge Data Allergies Allergy/AdvReac Type Severity Reaction Status Date / Time lisinopril AdvReac Intermediate Cough Verified 01/14/19 08:51 Consultations 01/14/19 10:29 ED Decision to Admit Stat 01/14/19 12:51 Consult Gastroenterology Routine Ordered Studies 01/14/19 08:31 US abdomen limited Stat 01/14/19 11:09 CT head/brain wo con Stat 01/14/19 11:24 CT abd pelvis wo con Stat Hospital Course (1) Abdominal pain: Secondary to recurrent pancreatitis Management as below (2) Chronic recurrent pancreatitis: Pt is 58 y/o M with PMH chronic pancreatitis, uncontrolled HTN, uncontrolled HLD hypertriglyceridemia, SHANIQUA, med noncompliance presented with complaint of abdominal pain x 4 days. Also reports vomiting and diarrhea today. Reported history of pancreas divisum, possible side branch IPMN on prior studies. In ER pt Afebrile. No leukocytosis, Lipase: 135, AST: 57 (near baseline from 06/2018), ALT: 84 (56 in 06/2018), Alk phos: 80 US ABD: Biliary ductal dilatation likely reservoir effect in the post cholecy stectomy state. Moderate hepatic steatosis. CT ABD/PELVIS: No acute process within the abdomen or pelvis on unenhanced exam. Fatty liver. No urinary calculi or hydronephrosis. No CT evidence for acute pancreatitis. Has been feeling better since admission Abdominal pain seems to be improving He has been tolerating clears Diet was advanced and well-tolerated Wants to go home He was warned against possible recurrence of pain (3) Hypertensive urgency: Pt with hx uncontrolled HTN and medicine noncompliance. Follows with Dr Pacheco. Has not been taking his Losartan regularly, Has not been taking amlodipine, carvedilol Denies current NIEVES, CP, SOB. Is Alert and oriented BP's elevated in ER 191/126 CT HEAD: No acute intracranial abnormality. EKG: no acute ST changes -In ER received Lopressor 5mg IV -Additional enalaprilat 1.25mg IV given with BP down to 162/107 -Enalaprilat 1.25mg Q6H -Hydralazine 10mg IV Q6h PRN SBP>180, DBP>100 -Resume amlodipine, carvedilol -Blood pressure remains stable -We will discharge home this afternoon he wants to go home (4) Dyslipidemia: (5) Hypertriglyceridemia: Has not been taking Crestor -Lipid panel in am -Resume Crestor (6) SHANIQUA (obstructive sleep apnea): Intolerant to CPAP -oxygen via [place] HS DVT Prophylaxis -SCDs Follows with Dr Cummings for routine care He wants to go home Total Time Total Time Spent Total Time Spent (In Minutes): 35 minutes Total Time Includes: Examination of the Patient, Discharge Planning, Medication Reconciliation and Communication With Other Providers Discharge Plan Discharge Items Patient Disposition: Home - Self-Care Reason For Visit: RECURRENT CHRONIC PANCREATITIS Discharge Diagnosis: Acute recurrent pancreatitis, hypertensive urgency Condition on Discharge: Good Activity: Resume your previous activity Non-emergency contact: Primary Care Provider Call non-emergency contact if: you have any medication questions and your symptoms worsen Follow-up/Referrals: Manish Cummings MD [Primary Care Provider] - 01/19/19 12:55 pm (Please keep your appointment with your marine geologist) Diet: Regular Addtl Attending Provider Instructions: Try to avoid fatty foods Small amount of food at one time Pending Studies at Discharge: No Stand-Alone Forms: Call Back Authorization, [facility] Medications and DC Order Prescriptions: Continued losartan 100 mg tablet 100 mg PO DAILY RF: 0 Pancreaze 21,000-54,700- 83,900 unit Capsule,Delayed Release(Dr/Ec) 2 cap PO TID RF: 0 carvedilol 25 mg tablet 25 mg PO BID RF: 0 aspirin 81 mg Tablet,Delayed Release (Dr/Ec) 81 mg PO DAILY RF: 0 pantoprazole 20 mg tablet,delayed release (DR/EC) 20 mg PO DAILY RF: 0 amlodipine 10 mg tablet 10 mg PO DAILY RF: 0 rosuvastatin 20 mg tablet 20 mg PO DAILY RF: 0 Discharge Orders: Discharge Order (Routine); Ordered 01/15/19 Ordered By: Kathleen Fountain Admission Data Admit Date/Time: 01/14/19 12:07 Attending Provider: Kathleen Fountain Admit Provider: Cole Alexander Primary Care Provider: Manish Cummings Other Providers: Cole Alexander ; Alyssia Clark Other Interventions: Discharge Summary Assessment (RN) Last Done: 01/15/19 15:39 DC Date/Time DO NOT enter until pt leaves facility: 01/15/19 16:06
[2019-01-16 01:06] LABS: Codeine Urine NEGATIVE NG/ML (CUTOFF=50); Hydrocodone Urine NEGATIVE NG/ML (CUTOFF=50); Hydromor Urine NEGATIVE NG/ML (CUTOFF=50); Morphine Urine 2360 NG/ML (CUTOFF=50); Norhydrocodone Conf Ur NEGATIVE NG/ML (CUTOFF=50); Noroxycodone Urine NEGATIVE NG/ML (CUTOFF=50); Oxycodone Urine NEGATIVE NG/ML (CUTOFF=50); Oxymorph Urine NEGATIVE NG/ML (CUTOFF=50)
== END 2019-01-15 16:06 | disposition home or self-care (01) | DRG 440 ==
LOC: ED 08:10 → SUATTDRO 12:07 → 2S 12:07